=== PATIENT | male | born 1945 | race Two or more races ===

== ENCOUNTER 2022-05-12 14:50 | Inpatient (IN) | payer OTHER ==
[~2022-05-12] VITALS: Ht 172.7 cm; Wt 75.0 kg
[2022-05-12 15:43] LABS: Basophils # (auto) 0 10 ^3/uL (0-0.2); Basophils % (auto) 0.6 % (0.0-2.0); Eosinophils # (auto) 0.2 10 ^3/uL (0-0.8); Hematocrit 45.6 % (41.0-53.0); Lymphocytes # (auto) 2.3 10 ^3/uL (0.4-5.4); Lymphocytes % (auto) 29.9 % (10.0-50.0); Mean Corpuscular Hemoglobin 30.8 pg (28.0-32.0); Mean Corpuscular Hgb Conc. 32.9 g/dL (32.0-36.0); Mean Corpuscular Volume 93.6 fL (80.0-100.0); Monocytes # (auto) 0.6 10 ^3/uL (0-1.3); Monocytes % (auto) 7.6 % (0.0-12.0); Neutrophils # (auto) 4.5 10 ^3/uL (1.6-8.6); Neutrophils % (auto) 58.9 % (37.0-80.0); Red Blood Cells 4.87 10^6/uL (4.5-5.90); Red Cell Distribution Width 13.4 % (11.8-14.3); White Blood Cell 7.7 10^3/uL (4.4-10.8)
[2022-05-12 15:59] LABS: BUN/Creatinine Ratio 18.1; Calcium 8.7 mg/dL (8.5-10.1); Potassium 4.4 mmol/L (3.5-5.1)
[2022-05-12 16:02] LABS: Bilirubin, Total 0.3 mg/dL (0.2-1.0); Total Protein 7.3 g/dL (6.4-8.2)
[2022-05-12 16:58] LABS: INR 0.97 (0.9-1.15)
[2022-05-12 18:21] LABS: Urine Bacteria NONE SEEN /hpf (None Seen); Urine Blood TRACE /uL (Negative); Urine Mucus FEW (None Seen); Urine Specific Gravity 1.012 (1.001-1.035); Urine WBC 10 /hpf (0 - 3); Urine WBC Clumps PRESENT /hpf (None Seen)
[2022-05-12] MEDS ORDERED: ASPirin 81 mg TAB PO ONE (18:30)
[2022-05-12 19:29] LABS: Cholesterol 147 mg/dL (< 200)
[2022-05-12 19:31] LABS: HDL Cholesterol 38 mg/dL (40-59); LDL Cholesterol 93 mg/dL (< 100); Triglycerides 161 mg/dL (< 150)
[2022-05-12] MEDS ORDERED: ACETAMINOPHEN 325 MG TAB PO PRN (21:00)
[2022-05-12] MEDS ORDERED: NITROGLYCERIN 0.4 MG SL TAB SL PRN (21:00)
[2022-05-12] MEDS ORDERED: DEXTROSE (50%) 50ML SYRG IV PRN (21:00)
[2022-05-12] MEDS ORDERED: ONDANSETRON HCL 4 MG/2 ML VIAL IV PRN (21:00)
[2022-05-12] MEDS ORDERED: MORPHINE SULFATE INJ 2 MG/ml SYRG IV PRN (21:00)
[2022-05-12] MEDS: TAMSULOSIN HYDROCHLORIDE 0.4 MG CAP PO SCH (21:15)
[2022-05-12] MEDS: ACCU-CHEK COMFORT CURVE STRIP VI SCH (22:00)
[2022-05-12] MEDS: InsuLIN REG 1unit/0.01ml Soln (100units/ml) SC SCH (22:00)
[2022-05-12] MEDS: METOPROLOL TARTRATE 25 MG TAB PO SCH (22:31)
[2022-05-13] VITALS (8 sets, daily range): BP systolic 132–171; BP diastolic 63–86
[2022-05-13] MEDS ORDERED: METO25TA5 PO (01:09)
[2022-05-13] MEDS ORDERED: GLIM2TAB33 PO (01:09)
[2022-05-13] MEDS ORDERED: ASPI1TAB20 PO (01:09)
[2022-05-13] MEDS ORDERED: ATOR-47 PO (01:09)
[2022-05-13] MEDS ORDERED: TAM04C PO (01:09)
[2022-05-13] MEDS ORDERED: CHOL20007 PO (01:09)
[2022-05-13] MEDS ORDERED: AML5T PO (01:09)
[2022-05-13] MEDS ORDERED: BENA40TA8 PO (01:09)
[2022-05-13 05:39] LABS: Basophils # (auto) 0 10 ^3/uL (0-0.2); Basophils % (auto) 0.3 % (0.0-2.0); Eosinophils # (auto) 0.3 10 ^3/uL (0-0.8); Eosinophils % (auto) 4.3 % (0.0-7.0); Hematocrit 43.7 % (41.0-53.0); Hemoglobin 14.9 g/dL (13.5-17.5); Lymphocytes # (auto) 1.8 10 ^3/uL (0.4-5.4); Lymphocytes % (auto) 23.9 % (10.0-50.0); Mean Corpuscular Hemoglobin 31.5 pg (28.0-32.0); Mean Corpuscular Hgb Conc. 34.1 g/dL (32.0-36.0); Mean Corpuscular Volume 92.3 fL (80.0-100.0); Monocytes # (auto) 0.7 10 ^3/uL (0-1.3); Monocytes % (auto) 8.7 % (0.0-12.0); Neutrophils # (auto) 4.8 10 ^3/uL (1.6-8.6); Neutrophils % (auto) 62.8 % (37.0-80.0); Nucleated Red Blood Cells % 0.1 %; Red Blood Cells 4.73 10^6/uL (4.5-5.90); Red Cell Distribution Width 13.4 % (11.8-14.3); White Blood Cell 7.6 10^3/uL (4.4-10.8)
[2022-05-13 05:55] LABS: Albumin 3.5 g/dL (3.4-5.0)
[2022-05-13 05:59] LABS: BUN/Creatinine Ratio 17.5; Bilirubin, Total 0.5 mg/dL (0.2-1.0); Calcium 9.2 mg/dL (8.5-10.1); Total Protein 6.5 g/dL (6.4-8.2)
[2022-05-13] MEDS: InsuLIN REG 1unit/0.01ml Soln (100units/ml) SC SCH ×4 (06:35→21:17)
[2022-05-13] MEDS: ACCU-CHEK COMFORT CURVE STRIP VI SCH ×4 (06:37→21:16)
[2022-05-13] MEDS: ATORVASTATIN 20 MG TAB PO SCH (09:06)
[2022-05-13] MEDS: ASPirin 81 mg TAB PO SCH (09:06)
[2022-05-13] MEDS: amLODIPine BESYLATE 5 MG TAB PO SCH (09:07)
[2022-05-13] MEDS: METOPROLOL TARTRATE 25 MG TAB PO SCH ×2 (09:07→21:54)
[2022-05-13] MEDS: ENOXAPARIN SOD 40 MG/0.4 ML SYRINGE SC SCH (09:07)
[2022-05-13] MEDS ORDERED: PANTOPRAZOLE 40 MG TAB PO SCH (10:00)
[2022-05-13] MEDS ORDERED: CLOPIDOGREL BISULFATE 75 MG TAB PO ONE (14:45)
[2022-05-13] MEDS ORDERED: HYDR-4902 PO (14:51)
[2022-05-13] MEDS ORDERED: CHOL20TA PO (14:51)
[2022-05-13] MEDS ORDERED: HYDR12.56 PO (14:51)
[2022-05-13] MEDS ORDERED: INSUINJ2 SC (14:51)
[2022-05-13] MEDS ORDERED: cefTRIAXone 1GM/50ML D5W 50 ML IV ONE (15:00)
[2022-05-13] MEDS ORDERED: IOHEXOL 350 MG/ML 100ML IJ ONE (15:59)
[2022-05-13] MEDS ORDERED: hydrALAZINE HCL 20 MG/ML VL IV PRN (16:00)
[2022-05-13] MEDS ORDERED: TEMAZEPAM 15 MG CAP PO PRN (16:15)
[2022-05-13] MEDS: TAMSULOSIN HYDROCHLORIDE 0.4 MG CAP PO SCH (17:01)
[2022-05-14 05:00] VITALS: BP 146/77
[2022-05-14] MEDS: InsuLIN REG 1unit/0.01ml Soln (100units/ml) SC SCH ×2 (05:56→11:47)
[2022-05-14 08:33] VITALS: BP 123/70
[2022-05-14] MEDS ORDERED: cefTRIAXone 1GM/50ML D5W 50 ML IV SCH (09:00)
[2022-05-14] MEDS: ACCU-CHEK COMFORT CURVE STRIP VI SCH ×2 (09:07→11:47)
[2022-05-14] MEDS: ATORVASTATIN 20 MG TAB PO SCH (09:08)
[2022-05-14] MEDS: ASPirin 81 mg TAB PO SCH (09:08)
[2022-05-14] MEDS: METOPROLOL TARTRATE 25 MG TAB PO SCH (09:08)
[2022-05-14] MEDS: amLODIPine BESYLATE 5 MG TAB PO SCH (09:09)
[2022-05-14] MEDS: ENOXAPARIN SOD 40 MG/0.4 ML SYRINGE SC SCH (09:09)
[2022-05-14] MEDS ORDERED: BENAZEPRIL HCL 10 MG TAB PO SCH (10:00)
[2022-05-14] MEDS ORDERED: CLOPIDOGREL BISULFATE 75 MG TAB PO SCH (10:00)
[2022-05-14 13:15] VITALS: BP 143/66
[2022-05-14] MEDS ORDERED: CLOP75TA70 PO (13:51)
[2022-05-14] MEDS ORDERED: ROCURONIUM 10MG/ML 10ML VIAL IV ONE (14:52)
[2022-05-14] MEDS ORDERED: fentaNYL CITRATE 100 MCG/2 ML VL ONE (14:52)
[2022-05-14] MEDS ORDERED: ONDANSETRON HCL 4 MG/2 ML VIAL ONE (14:53)
[2022-05-14] MEDS ORDERED: LIDOCAINE 2% (LOCAL ANESTH.) PF 5ml SDV ONE (14:53)
[2022-05-14] MEDS ORDERED: METOCLOPRAMIDE HCL 5MG/ml INJ 2ml VIAL ONE (14:53)
[2022-05-14] MEDS ORDERED: DexAMETHasone SOD PHOS 10MG/1ML VIAL INJ ONE (14:53)
[2022-05-14] MEDS ORDERED: GLYCOPYRROLATE 0.2 MG/ML 1ML VIAL ONE (16:43)
[2022-05-14] MEDS ORDERED: NEOSTIGMINE 1 MG/ML INJ (10mg/10ML VIAL) ONE (16:43)
[2022-05-14 17:00] VITALS: BP 130/64
== END 2022-05-14 18:04 | disposition home or self-care (01) | DRG 65 ==
LOC: ER 14:50 → TELE 20:55 → TELE-WESTW 05-13 00:35
PROVIDERS: ADMIT Nurse Practitioner; ATTEND Internal Medicine Geriatric Medicine
DX: I63.9 Cerebral infarction, unspecified (principal); G81.91 Hemiplegia, unspecified affecting right dominant side; N39.0 Urinary tract infection, site not specified; E11.9 Type 2 diabetes mellitus without complications; E78.5 Hyperlipidemia, unspecified; I10 Essential (primary) hypertension; I25.10 Atherosclerotic heart disease of native coronary artery without angina pectoris; I65.22 Occlusion and stenosis of left carotid artery; M10.9 Gout, unspecified; Z20.822 Contact with and (suspected) exposure to COVID-19; Z79.82 Long term (current) use of aspirin; Z79.899 Other long term (current) drug therapy; Z95.1 Presence of aortocoronary bypass graft; Z79.4 Long term (current) use of insulin
CPT/HCPCS: 36415; 70450; 70496; 70498; 70551; 73630; 80053; 80061; 81001; 82962; 84484; 85025; 85610; 85730; 93005; 93306; 93886; 97116; 97163; 97530; 99291; G0378; J0696; J1100; J1815; J2001; J2405

== ENCOUNTER 2025-01-13 15:33 | Inpatient (IN) | payer OTHER, MEDICAID ==
[~2025-01-13] VITALS: Ht 172.7 cm; Wt 64.9 kg
[~2025-01-13 15:33] MED LIST: AML5T PO; ASPI1TAB20 PO; ATOR-47 PO; BENA40TA71 PO; CHOL20007 PO; CHOL20TA PO; CLOP75TA70 PO; GLIM2TAB33 PO; HYDR-4902 PO; HYDR12.59 PO; INSUINJ2 SC; METO25TA5 PO; TAMS-35 PO
--- NOTE | 2025-01-13 16:52 | ED.PDOC ---
History of Present Illness HPI Comments 79-year-old male brought in by daughter presents with a chief complaint of generalized weakness and poor appetite x 1 week. Daughter reports that patient has been becoming increasingly weaker and unable to ambulate anymore, even with a walker or assistance. Patient is nonverbal at this time due to a stroke in the past. Daughter mentions that she attempts to feed patient, but he chooses not to eat anything. Daughter also mentions that patient has been coughing up phlegm. PMHx: CVA, DM, CAD, HTN, HLD, Gout PSHx: CABG SHx: Daughter denies HPI: Poor Historian. REVIEW OF SYSTEMS: CONSTITUTIONAL: Denies acute: fever, diaphoresis, chills, HEAD: Denies acute: headache, photophobia Eyes: Denies acute: Double vision, vision loss, eye pain, eye discharge. EARS: Denies acute: tinnitus, hearing loss, ear discharge, ear pain, THROAT: Denies acute: sore throat, swelling, difficulty swallowing , pain with swallowing, change in voice. NECK: Denies acute: neck pain, neck swelling, stiff neck. HEART: Denies acute : chest pain, palpitations, LUNGS: Denies acute: SOB, wheezing, cough, hemoptysis ABDOMEN: Denies acute: abdominal pain, Nausea, Vomiting, diarrhea, melena , hematemesis, hematochezia SKIN: Denies acute: rash, redness, lesions, itchiness. EXTREMITIES: Denies acute: calf pain, numbness, tingling, weakness, denies pain in extremity. Denies acute: Low back pain. Neuro: Denies acute: focal neurological deficit, motor or sensory focal neurological deficit, tremors, seizure like activity, confusion, dizziness, change in mental status, loss of bowel or bladder function, cauda equina like symptoms. : Denies acute: dysuria, hematuria, flank pain, increase in urinary frequency. PSYCH: Denies acute: hallucination, suicidal ideation, homicidal ideation. PHYSICAL EXAM: General: no acute distress, awake and alert. Head: normocephalic, atraumatic. Neck: supple, trachea is midline, no swelling. Eyes:, no erythema, no purulent discharge, no proptosis, no icterus. Heart: regular rate, regular rhythm, no significant murmur appreciated. Lungs: no apparent respiratory distress, No wheezing, no rhonchi, no crackles. No stridors Clear to auscultation bilaterally. Abdomen: non tender to palpation, non distended, soft, no guarding, no rebound, + bowel sounds. Neuro: Awake, Alert, oriented to name, self, situation, follows commands. Appears very weak. Skin: no petechia, no purpura, no cyanosis, non-pale, not jaundice. Lower extremities: --no - Pitting edema no deformity, no focal swelling, no calf TTP. Makes eye contact. Face: no apparent facial droop. ED COURSE: Chief Complaint: General Weakness Time Seen by MD: 16:45 Primary Care Provider: VANNESSA Reviewed Notes: Nurses Notes, Medications, Allergies Allergies: Coded Allergies: NO KNOWN ALLERGIES (Unverified , 05/12/22) Home Meds Active Scripts Clopidogrel Bisulfate (CLOPIDOGREL) 75 Mg Tab, 75 MG PO DAILY for 30 Days, #30 TAB 5 Refills Prov:PABLITO GUERRA MD 05/14/22 Reported Medications Insulin NPH (Human) (Isophane) (Humulin N) 100 Unit/Ml Inj, 25 UNIT SC BIDBRS, INJ 05/13/22 Hydrochlorothiazide (Hydrochlorothiazide) 12.5 Mg Cap, 12.5 MG PO DAILY for 30 Days, MG 05/13/22 Hydrocodone-Acetaminophen (Hydrocodone Bitartrate/AC 5-325 mg) 1 Tab Tab, 1 TAB PO Q8HP PRN for PAIN SCALE 1 THRU 6, TAB 05/13/22 Cholecalciferol (Vitamin D3) 20 Mcg Tab, 25 MCG PO DAILY, TAB 05/13/22 Cholecalciferol (VITAMIN D3) 2,000 Unit Tab, 1000 UNIT PO DAILY, TAB 05/13/22 Metoprolol Tartrate (Metoprolol Tartrate) 25 Mg Tab, 25 MG PO BID for 30 Days, MG 05/13/22 Tamsulosin Hcl (Flomax) 0.4 Mg Cap, 1 CAP PO DAILY, #30 CAP 11 Refills 05/13/22 Benazepril Hcl (Benazepril Hcl) 40 Mg Tab, 40 MG PO DAILY for 30 Days, MG 05/13/22 Amlodipine Besylate (NORVASC TABLET) 5 Mg Tb, 2 TAB PO DAILY, #30 TAB 5 Refills 05/13/22 Glimepiride (Glimepiride) 2 Mg Tab, 2 MG PO BID for 30 Days, MG 05/13/22 Aspirin (Aspir-81) 81 Mg Tab, 1 TAB PO DAILY, #30 TAB 5 Refills 05/13/22 Atorvastatin Calcium (ATORVASTATIN CALCIUM) 80 Mg Tab, 1 TAB PO DAILY, #30 TAB 5 Refills 05/13/22 Information Source: Relative (Child) Mode of Arrival: Wheelchair Past Medical History PAST MEDICAL HISTORY: CAD, CVA, DM, Gout, High Lipids, HTN Surgical History: CABG Family History Family History: Reviewed,noncontributory to illness Social History Smoker: Non-Smoker Alcohol: Denies ETOH Use Drugs: Denies Drug Use Lives In: Home Was a procedure done? Was a procedure done?: No Differential Dx Considerations may include: Includes but not limited to thyroid disease, encephalopathy, electrolyte abnormality, sepsis, infection, intracranial pathology, drug adverse effects, arrhythmia, kidney insufficiency, ACS, CVA, malignancy, anemia X-Ray, Labs, Meds, VS Vital Signs Date Time Temp Pulse Resp B/P (MAP) Pulse Ox O2 Delivery O2 Flow Rate FiO2 01/13/25 20:26 67 14 124/67 (86) 98 01/13/25 18:24 Room Air* 0 21 01/13/25 18:23 96.5 69 16 120/70 (87) 95 96.5 01/13/25 17:32 98.2 65 22 113/69 (84) 98 98.2 01/13/25 16:49 66 Lab Test 01/13/25 22:00 01/13/25 21:04 01/13/25 19:05 01/13/25 17:24 Range/Units Urine Color Pending Urine Clarity Pending Urine pH Pending Urine Specific Graham Pending Urine Protein Pending Urine Ketones Pending Urine Blood Pending Urine Nitrite Pending Urine Bilirubin Pending Urine Urobilinogen Pending Urine Leukocyte Esterase Pending Urine RBC Pending Urine Microscopic WBC Pending Urine Squamous Epithelial Cells Pending Urine Bacteria Pending Urine Glucose Pending Troponin I High Sensitivity 14 13 15 </=54 ng/L White Blood Count 7.8 4.4-10.8 10^3/uL Red Blood Count 4.81 4.5-5.90 10^6/uL Hemoglobin 15.9 13.5-17.5 g/dL Hematocrit 47.2 41.0-53.0 % Mean Corpuscular Volume 98.1 80.0-100.0 fL Mean Corpuscular Hemoglobin 33.1 H 28.0-32.0 pg Mean Corpuscular Hemoglobin Concent 33.7 32.0-36.0 g/dL Red Cell Distribution Width 15.0 H 11.8-14.3 % Platelet Count 258 140-450 10^3/uL Mean Platelet Volume 7.1 6.9-10.8 fL Neutrophils (%) (Auto) 67.4 37.0-80.0 % Lymphocytes (%) (Auto) 25.2 10.0-50.0 % Monocytes (%) (Auto) 6.6 0.0-12.0 % Eosinophils (%) (Auto) 0.4 0.0-7.0 % Basophils (%) (Auto) 0.4 0.0-2.0 % Neutrophils # (Auto) 5.3 1.6-8.6 10 ^3/uL Lymphocytes # (Auto) 2.0 0.4-5.4 10 ^3/uL Monocytes # (Auto) 0.5 0-1.3 10 ^3/uL Eosinophils # (Auto) 0 0-0.8 10 ^3/uL Basophils # (Auto) 0 0-0.2 10 ^3/uL Nucleated Red Blood Cells 0.1 % Sodium Level 138 136-145 mmol/L Potassium Level 3.6 3.5-5.1 mmol/L Chloride Level 102 98-107 mmol/L Carbon Dioxide Level 23 20-31 mmol/L Anion Gap 13 5-15 Blood Urea Nitrogen 26 H 9-23 mg/dL Creatinine 1.25 0.700-1.30 mg/dL Glomerular Filtration Rate Calc 58 >90 mL/min BUN/Creatinine Ratio 20.8 H 10.0-20.0 Serum Glucose 112 H 74-106 mg/dL Lactic Acid Level 1.9 0.4-2.0 mmol/L Calcium Level 9.3 8.7-10.4 mg/dL Magnesium Level 2.1 1.6-2.6 mg/dL Total Bilirubin 0.7 0.2-1.0 mg/dL Aspartate Amino Transferase (AST) 20 13-40 U/L Alanine Aminotransferase (ALT) 15 7-40 U/L Alkaline Phosphatase 51 46-116 U/L B-Type Natriuretic Peptide 34.78 0-100 pg/mL Total Protein 6.3 5.7-8.2 g/dL Albumin 4.2 3.2-4.8 g/dL PATIENT: BEATRIZ CARPENTERCCT: [id number]: [id number] : 1945 LOC: ER ROOM / BED: / AGE / SEX: 79 / M ADM STATUS: REG ER SERVICE 42 ORDERING PHYSICIAN: BABAR WILSON DO PROCEDURE(s): CXRP - CHEST PORTABLE REASON: gen cabrera ORDER NUMBER(s): [id number], ACCESSION NUMBER(s): [id number] CHEST RADIOGRAPH Indication: gen weak Technique: Single frontal view of the chest was obtained COMPARISON: None FINDINGS: Lines and Tubes: None Lungs: Clear Pleura: No effusion. No pneumothorax. Cardiomediastinal contours: Unremarkable Bones: Unremarkable IMPRESSION: 1. No acute disease. ATED BY: RASHIDA ORO MD DICTATED DATE/TIME: 01/13/251725 SIGNED BY: RASHIDA ORO MD SIGNED DATE/TIME: 01/13/251725 PATIENT: BRITTANY CARPENTER ACCT: [id number] UNIT: [id number] : 1945 LOC: ER ROOM / BED: / AGE / SEX: 79 / M ADM STATUS: REG ER SERVICE 42 ORDERING PHYSICIAN: BABAR WILSON DO PROCEDURE(s): HWOCT - HEAD WITHOUT CONTRAST REASON: gen cabrera ORDER NUMBER(s): [id number], ACCESSION NUMBER(s): [id number] EXAM: CT HEAD WITHOUT CONTRAST INDICATION: gen cabrera TECHNIQUE: CT of the head without intravenous contrast. Radiation Dose Information: CT Dose: CTDI volume is 53.76 mGy. Dose-length product is 971.18 mGy*cm The dose indicators for CT are the volume Computed Tomography (CT) Dose Index (CTDIvol) and the Dose Length Product (DLP), and are measured in units of mGy and mGy-cm, respectively. These indicators are not patient dose, but values generated from the CT scanner acquisition factors. The report includes radiation exposure data for exposures received during this examination. COMPARISON: HEAD WITHOUT CONTRAST on DOS: 05/12/22 FINDINGS: There is no evidence of acute intracranial hemorrhage, extra-axial collection, mass effect, midline shift, herniation or hydrocephalus. The ventricles, sulci and cisterns are age appropriate. The alexander-white differentiation is intact. Patchy periventricular and subcortical white matter hypoattenuation is nonspecific but may be related to small vessel ischemic disease. The visualized paranasal sinuses and mastoid air cells are clear. The surrounding soft tissues and osseous structures are unremarkable. IMPRESSION: 1. NO ACUTE INTRACRANIAL HEMORRHAGE 2. NO TERRITORIAL ISCHEMIA. HS:Y ATED BY: RASHIDA COELLO Jr., DO DICTATED DATE/TIME: 01/13/251729 SIGNED BY: RASHIDA COELLO Jr., SIGNED DATE/TIME: 01/13/251729 PATIENT: BRITTANY CARPENTER ACCT: [id number] UNIT: [id number] : 1945 LOC: ER ROOM / BED: / AGE / SEX: 79 / M ADM STATUS: REG ER SERVICE 1643 ORDERING PHYSICIAN: BABAR WILSON DO PROCEDURE(s): ABPL - CT AB PEL WO CON-NO ORAL OR IV REASON: gen weak ORDER NUMBER(s): [id number], ACCESSION NUMBER(s): [id number] Procedure: CT CT AB PEL WO CON-NO ORAL OR IV 01/13/2025 04:53 PM Indication: gen weak Comparison Study: None Technique: Axial images were obtained and reformatted in coronal and sagittal planes. All CT scans at this medical facility are performed using dose modulation techniques as appropriate to a performed exam including the following: Automated exposure control was utilized; adjustment of the MA and/or KV according to patient size; and use of iterative reconstruction technique. CT Dose: CTDI volume is 8.7 mGy. Dose-length product is 438 mGy*cm FINDINGS: Lower Chest: Base of the lungs are clear. Coronary artery calcification noted. The heart is normal in size. Hepatobiliary: Moderately distended gallbladder without gallbladder wall thickening, pericholecystic edema or calcified gallstone. Several subcentimeter calcified granulomas are seen in the liver. No intrahepatic or extrahepatic ductal dilatation. Spleen: Unremarkable. Pancreas: Unremarkable. Adrenal Glands: Unremarkable. tract: The kidneys are normal in size bilaterally without hydronephrosis or nephrolithiasis. The urinary bladder is unremarkable. GI tract: The stomach is grossly normal in appearance. No evidence of small bowel obstruction. The large bowel is unremarkable. The appendix is normal. Lymphatics: No mesenteric, retroperitoneal or periportal lymphadenopathy. Vasculature: The abdominal aorta is normal in caliber. Diffuse calcified plaque formation is noted. Pelvic Organs: Unremarkable Bones/soft tissues: No acute abnormality. Other: None. IMPRESSION: 1. No CT evidence of acute abnormality in the abdomen or pelvis. ATED BY: PIPPA COTO MD DICTATED DATE/TIME: 01/13/251825 SIGNED BY: PIPPA COTO MD SIGNED DATE/TIME: 01/13/251825 Time of 1ST Reevaluation: 17:15 Reevaluation 1ST: Unchanged Patient Education/Counseling: Diagnosis, Treatment Family Education/Counseling: Diagnosis, Treatment Comments Patient presented with the above HPI.-generalized weakness-----workup was initiated. patient was found with the above mentioned diagnosis. the following medications were ordered: please refer to order lists of meds and tests obtained by myself Dr. Wilson. Patient ED course and VS have been stabilized. Patient has been reassessed in the ED and remained in a stable condition. Pertinent incidental findings were discussed with the patient and/or family. Patient/family voices understanding and is agreeable with plan. Patient has been observed in the ED adequate length of time to insure improvement/stability. Escalation of care considered: Consideration of escalation to observation or admission Patient was ADMITTED to the medicine team for further evaluation and treatment of their presentation. Per at bedside, patient has not been eating and drinking in the last 12 days. He has not been able to ambulate lately due to weakness and is requiring more care at home. also notes that his speech has deteriorated over the course of the last 1-2 weeks. She said he had speech problems from a previous stroke but has progressively gotten worse in the last two weeks. All the reports of any imaging studies that were ordered by myself were reviewed by myself. Departure 1 Departure Time of Disposition: 19:20 Impression: Primary Impression: Failure to thrive Additional Impression: Generalized weakness Disposition: ADMITTED INPATIENT Admit to: [facility] Condition: Guarded Discharged With: Self Critical Care Note Critical Care Time?: No I personally scribed for BABAR WILSON DO ([email or web address]) on 01/13/25 at 16:52. Electronically submitted by Deejay Cerda ([email or web address]). I personally scribed for BABAR WILSON J DO ([email or web address]) on 01/13/25 at 16:54. Electronically submitted by Deejay Cerda ([email or web address]). I personally scribed for BABAR WILSON J DO ([email or web address]) on 01/13/25 at 17:50. Electronically submitted by Deejay Cerda ([email or web address]). I personally scribed for BABAR WILSON J DO ([email or web address]) on 01/13/25 at 17:54. Electronically submitted by Deejay Cerda ([email or web address]). I personally scribed for BABAR WILSON J DO ([email or web address]) on 01/13/25 at 19:18. Electronically submitted by Deejay Cerda ([email or web address]). BABAR WILSON DO Jan 13, 2025 16:52
--- NOTE | 2025-01-13 17:28 | DVH ---
CHEST RADIOGRAPH Indication: gen weak Technique: Single frontal view of the chest was obtained COMPARISON: None FINDINGS: Lines and Tubes: None Lungs: Clear Pleura: No effusion. No pneumothorax. Cardiomediastinal contours: Unremarkable Bones: Unremarkable IMPRESSION: 1. No acute disease.
[2025-01-13 17:33] LABS: Basophils # (auto) 0 10 ^3/uL (0-0.2); Basophils % (auto) 0.4 % (0.0-2.0); Eosinophils # (auto) 0 10 ^3/uL (0-0.8); Eosinophils % (auto) 0.4 % (0.0-7.0); Hematocrit 47.2 % (41.0-53.0); Hemoglobin 15.9 g/dL (13.5-17.5); Lymphocytes % (auto) 25.2 % (10.0-50.0); Mean Corpuscular Hemoglobin 33.1 pg (28.0-32.0); Mean Corpuscular Hgb Conc. 33.7 g/dL (32.0-36.0); Mean Corpuscular Volume 98.1 fL (80.0-100.0); Monocytes # (auto) 0.5 10 ^3/uL (0-1.3); Monocytes % (auto) 6.6 % (0.0-12.0); Neutrophils # (auto) 5.3 10 ^3/uL (1.6-8.6); Neutrophils % (auto) 67.4 % (37.0-80.0); Nucleated Red Blood Cells % 0.1 %; Platelet Count (auto) 258 10^3/uL (140-450); Red Blood Cells 4.81 10^6/uL (4.5-5.90); White Blood Cell 7.8 10^3/uL (4.4-10.8)
--- NOTE | 2025-01-13 17:33 | DVH ---
EXAM: CT HEAD WITHOUT CONTRAST INDICATION: gen weak TECHNIQUE: CT of the head without intravenous contrast. Radiation Dose Information: CT Dose: CTDI volume is 53.76 mGy. Dose-length product is 971.18 mGy*cm The dose indicators for CT are the volume Computed Tomography (CT) Dose Index (CTDIvol) and the Dose Length Product (DLP), and are measured in units of mGy and mGy-cm, respectively. These indicators are not patient dose, but values generated from the CT scanner acquisition factors. The report includes radiation exposure data for exposures received during this examination. COMPARISON: HEAD WITHOUT CONTRAST on DOS: 05/12/22 FINDINGS: There is no evidence of acute intracranial hemorrhage, extra-axial collection, mass effect, midline s hift, herniation or hydrocephalus. The ventricles, sulci and cisterns are age appropriate. The alexander-white differentiation is intact. Patchy periventricular and subcortical white matter hypoattenuation is nonspecific but may be related to small vessel ischemic disease. The visualized paranasal sinuses and mastoid air cells are clear. The surrounding soft tissues and osseous structures are unremarkable. IMPRESSION: 1. NO ACUTE INTRACRANIAL HEMORRHAGE 2. NO TERRITORIAL ISCHEMIA. HS:Y
[2025-01-13 17:52] LABS: Alanine Aminotransferase 15 U/L (7-40); Albumin 4.2 g/dL (3.2-4.8); Alkaline Phosphatase 51 U/L (46-116); Anion Gap 13 (5-15); Aspartate Aminotransferase 20 U/L (13-40); BUN/Creatinine Ratio 20.8 (10.0-20.0); Bilirubin, Total 0.7 mg/dL (0.2-1.0); Calcium 9.3 mg/dL (8.7-10.4); Carbon Dioxide 23 mmol/L (20-31); Chloride 102 mmol/L (98-107); Magnesium 2.1 mg/dL (1.6-2.6); Potassium 3.6 mmol/L (3.5-5.1); Sodium 138 mmol/L (136-145); Total Protein 6.3 g/dL (5.7-8.2)
[2025-01-13 17:53] LABS: Blood Urea Nitrogen 26 mg/dL (9-23); Glucose 112 mg/dL (74-106)
--- NOTE | 2025-01-13 18:29 | DVH ---
Procedure: CT CT AB PEL WO CON-NO ORAL OR IV 01/13/2025 04:53 PM Indication: gen weak Comparison Study: None Technique: Axial images were obtained and reformatted in coronal and sagittal planes. All CT scans at this medical facility are performed using dose modulation techniques as appropriate to a performed e xam including the following: Automated exposure control was utilized; adjustment of the MA and/or KV according to patient size; and use of iterative reconstruction technique. CT Dose: CTDI volume is 8.7 mGy. Dose-length product is 438 mGy*cm FINDINGS: Lower Chest: Base of the lungs are clear. Coronary artery calcification noted. The heart is normal in size. Hepatobiliary: Moderately distended gallbladder without gallbladder wall thickening, pericholecystic edema or calcified gallstone. Several subcentimeter calcified granulomas are seen in the liver. No intrahepatic or extrahepatic ductal dilatation. Spleen: Unremarkable. Pancreas: Unremarkable. Adrenal Glands: Unremarkable. tract: The kidneys are normal in size bilaterally without hydronephrosis or nephrolithiasis. The u rinary bladder is unremarkable. GI tract: The stomach is grossly normal in appearance. No evidence of small bowel obstruction. The la rge bowel is unremarkable. The appendix is normal. Lymphatics: No mesenteric, retroperitoneal or periportal lymphadenopathy. Vasculature: The abdominal aorta is normal in caliber. Diffuse calcified plaque formation is noted. Pelvic Organs: Unremarkable Bones/soft tissues: No acute abnormality. Other: None. IMPRESSION: 1. No CT evidence of acute abnormality in the abdomen or pelvis.
[2025-01-13] MEDS ORDERED: ONDANSETRON HCL 4 MG/2 ML VIAL IV PRN (22:00)
[2025-01-13] MEDS: METOPROLOL TARTRATE 25 MG TAB PO SCH (22:00)
[2025-01-13] MEDS: SODIUM CHLORIDE 0.9% 1,000 ML IV SCH (22:00)
[2025-01-13] MEDS: ATORVASTATIN 20 MG TAB PO SCH (22:00)
[2025-01-13] MEDS: ACCU-CHEK COMFORT CURVE STRIP VI SCH (22:00)
[2025-01-13] MEDS: InsuLIN REG 1unit/0.01ml Soln (100units/ml) SC SCH (22:00)
[2025-01-13] MEDS ORDERED: DEXTROSE (50%) 50ML SYRG IV PRN (22:00)
[2025-01-13] MEDS ORDERED: hydrALAZINE HCL 20 MG/ML VL IV PRN (22:00)
[2025-01-13 22:35] LABS: Urine Bacteria MOD /hpf (None Seen); Urine Blood 1+ /uL (Negative); Urine Clarity Turbid (Clear); Urine Color Yellow (Yellow); Urine Mucus FEW (None Seen); Urine Protein, UAD TRACE (Negative); Urine Specific Gravity 1.013 (1.001-1.035); Urine Squamous Epithelial Cell None Seen /hpf (<5); Urine Urobilinogen Normal (Negative); Urine WBC 493 /HPF (0-3); Urine WBC Clumps PRESENT /hpf (None Seen)
--- NOTE | 2025-01-13 23:18 | DVHHP2 ---
History of Present Illness Reason for Visit: Generalized weakness History of Present Illness The patient is a 79-year-old male with past medical history of CVA, DM, Coronary artery disease, hypertension, GERD, and hyperlipidemia who presented to [facility] ED with complaint of generalized weakness. Patient's daughter reports symptoms progressively get worse with loss of appetite, increasingly weaker and unable to ambulate, has been coughing up phlegm, getting worse that prompted this visit. Patient was seen and evaluated in the ED, laboratory data shows WBC 7.8, platelets 258, sodium 138, potassium 3.6, BUN 26, creatinine 1.25, GFR 58, glucose 112, troponin 15. Head CT showed no acute intracranial hemorrhage. Please see medication orders section in the computer. On my assessment, patient denied chest pain, no headache, no dizziness, no diaphoresis, no shortness of breath, no nausea, no vomiting, no fever, no chills. Patient was admitted for further evaluation and medical management. Past Medical History CAD, CVA, DM, Gout, High Lipids, HTN Past Surgical History CABG Family History Reviewed, noncontributory to the management of this case. Past Social History The patient lives at home, denies smoking, alcohol or illicit drugs abuse. Review of Systems Constitutional: Yes: Weakness; No: Fever, Chills, Sweats, Malaise, Other Eyes: No: Pain, Vision change, Conjunctivae inflammation, Eyelid inflammation, Other, Redness ENT: No: Ear pain, Ear discharge, Nose pain, Nose discharge, Nose congestion, Mouth pain, Mouth swelling, Throat pain, Throat swelling, Other Respiratory: Cough (With phlegm.); No: Dry, Shortness of breath, SOB with excertion, Wheezing, Hemoptysis, Pleuritic Pain, Sputum, Wheezing, Other Cardiovascular: No: Chest Pain, Palpitations, Orthopnea, Paroxysmal Noc. Dyspnea, Edema, Lt Headedness, Other Gastrointestinal: No: Nausea, Vomiting, Abdominal Pain, Diarrhea, Constipation, Melena, Hematochezia, Other Genitourinary: No Dysuria, No Frequency, No Incontinence, No Hematuria, No Retention, No Other Musculoskeletal: No: other, neck pain, shoulder pain, arm pain, back pain, hand pain, leg pain, foot pain Skin: No: Rash, Lesions, Jaundice, Bruising, Other Neurological: No: Weakness, Numbness, Incoordination, Change in speech, Confusion, Seizures, Other Allergies: Coded Allergies: NO KNOWN ALLERGIES (Unverified , 05/12/22) Medications Current Medications Medications Dose Ordered Sig/Dorothy Route Start Time Stop Time Status Last Admin Dose Admin Aspirin 81 mg DAILY PO 01/14/25 10:00 Clopidogrel Bisulfate 75 mg DAILY PO 01/14/25 10:00 Atorvastatin Calcium 40 mg HS PO 01/13/25 22:00 Tamsulosin HCl 0.4 mg QPM PO 01/14/25 18:00 Metoprolol Tartrate 12.5 mg BID PO 01/13/25 22:00 Hydralazine HCl 10 mg Q6HP PRN IV 01/13/25 22:00 Diagnostic Test (Pha) 1 strip ACHS 01/13/25 22:00 01/13/25 22:00 1 STRIP Insulin Human Regular ACHS SC 01/13/25 22:00 01/13/25 22:00 2 UNITS Dextrose 50 ml UD PRN IV 01/13/25 22:00 Sodium Chloride 1,000 ml @ 60 mls/hr [id number] IV 01/13/25 22:00 01/13/25 22:00 60 MLS/HR Acetaminophen/ Hydrocodone Bitart 1 tab Q4HP PRN PO 01/13/25 22:00 Ondansetron HCl 4 mg Q4HP PRN IV 01/13/25 22:00 Docusate Sodium 100 mg BIDPRN PRN PO 01/13/25 22:00 Acetaminophen 650 mg Q6HP PRN PO 01/13/25 22:00 Amlodipine Besylate 5 mg DAILY PO 01/14/25 10:00 Exam Vital Signs Vital Signs Date Time Temp Pulse Resp B/P (MAP) Pulse Ox O2 Delivery O2 Flow Rate FiO2 01/13/25 22:50 97.3 65 12 129/63 (85) 99 97.3 01/13/25 18:24 Room Air* 0 21 General Appearance: Alert, Oriented X3, Cooperative, No acute distress HEENT: Atraumatic, PERRLA, EOMI, Mucous membr. moist/pink Respiratory: Normal air movement, Other (Diminished breath sounds) Cardiovascular: Regular rate, Normal S1, Normal S2, No murmurs Abdominal: Normal bowel sounds, Soft, No tenderness, No hepatospenomegaly, No masses Extremities: No clubbing, No cyanosis, No edema, Normal pulses, No tenderness/swelling Skin: No rashes, No breakdown, No significant lesion Neuro: Normal speech, Normal tone, Sensation intact, Cranial nerves 3-12 NL, Reflexes 2+, Other (Generalized weakness) Psych/Mental Status: Mental status NL, Mood NL Labs/Xrays Labs Test 01/13/25 22:46 01/13/25 22:00 01/13/25 21:04 01/13/25 17:24 Range/Units POC Glucose 161 H 70-106 mg/dl Urine Color Yellow Yellow Urine Clarity Turbid H Clear Urine pH 5.0 5.0-9.0 Urine Specific [place] 1.013 1.001-1.035 Urine Protein Trace H Negative Urine Ketones Trace Negative Urine Blood 1+ H Negative /uL Urine Nitrite Negative Negative Urine Bilirubin Negative Negative Urine Urobilinogen Normal Negative mg/dL Urine Leukocyte Esterase 2+ Negative /uL Urine RBC 9 0 - 3 /hpf Urine WBC Clumps Present None Seen /hpf Urine Microscopic WBC 493 H 0-3 /HPF Urine Squamous Epithelial Cells None seen <5 /hpf Urine Bacteria Mod H None Seen /hpf Urine Mucus Few None Seen Urine Glucose Normal Normal mg/dL Troponin I High Sensitivity 14 </=54 ng/L White Blood Count 7.8 4.4-10.8 10^3/uL Red Blood Count 4.81 4.5-5.90 10^6/uL Hemoglobin 15.9 13.5-17.5 g/dL Hematocrit 47.2 41.0-53.0 % Mean Corpuscular Volume 98.1 80.0-100.0 fL Mean Corpuscular Hemoglobin 33.1 H 28.0-32.0 pg Mean Corpuscular Hemoglobin Concent 33.7 32.0-36.0 g/dL Red Cell Distribution Width 15.0 H 11.8-14.3 % Platelet Count 258 140-450 10^3/uL Mean Platelet Volume 7.1 6.9-10.8 fL Neutrophils (%) (Auto) 67.4 37.0-80.0 % Lymphocytes (%) (Auto) 25.2 10.0-50.0 % Monocytes (%) (Auto) 6.6 0.0-12.0 % Eosinophils (%) (Auto) 0.4 0.0-7.0 % Basophils (%) (Auto) 0.4 0.0-2.0 % Neutrophils # (Auto) 5.3 1.6-8.6 10 ^3/uL Lymphocytes # (Auto) 2.0 0.4-5.4 10 ^3/uL Monocytes # (Auto) 0.5 0-1.3 10 ^3/uL Eosinophils # (Auto) 0 0-0.8 10 ^3/uL Basophils # (Auto) 0 0-0.2 10 ^3/uL Nucleated Red Blood Cells 0.1 % Sodium Level 138 136-145 mmol/L Potassium Level 3.6 3.5-5.1 mmol/L Chloride Level 102 98-107 mmol/L Carbon Dioxide Level 23 20-31 mmol/L Anion Gap 13 5-15 Blood Urea Nitrogen 26 H 9-23 mg/dL Creatinine 1.25 0.700-1.30 mg/dL Glomerular Filtration Rate Calc 58 >90 mL/min BUN/Creatinine Ratio 20.8 H 10.0-20.0 Serum Glucose 112 H 74-106 mg/dL Lactic Acid Level 1.9 0.4-2.0 mmol/L Calcium Level 9.3 8.7-10.4 mg/dL Magnesium Level 2.1 1.6-2.6 mg/dL Total Bilirubin 0.7 0.2-1.0 mg/dL Aspartate Amino Transferase (AST) 20 13-40 U/L Alanine Aminotransferase (ALT) 15 7-40 U/L Alkaline Phosphatase 51 46-116 U/L B-Type Natriuretic Peptide 34.78 0-100 pg/mL Total Protein 6.3 5.7-8.2 g/dL Albumin 4.2 3.2-4.8 g/dL PATIENT: BRITTANY CARPENTER ACCT: [id number] UNIT: [id number] : 1945 LOC: ER ROOM / BED: / AGE / SEX: 79 / M ADM STATUS: REG ER SERVICE 1643 ORDERING PHYSICIAN: BABAR WILSON DO PROCEDURE(s): ABPL - CT AB PEL WO CON-NO ORAL OR IV REASON: gen weak ORDER NUMBER(s): [id number], ACCESSION NUMBER(s): [id number] Procedure: CT CT AB PEL WO CON-NO ORAL OR IV 01/13/2025 04:53 PM Indication: gen cabrera Comparison Study: None Technique: Axial images were obtained and reformatted in coronal and sagittal planes. All CT scans at this medical facility are performed using dose modulation techniques as appropriate to a performed exam including the fol lowing: Automated exposure control was utilized; adjustment of the MA and/or KV according to patient size; and use of iterative reconstruction technique. CT Dose: CTDI volume is 8.7 mGy. Dose-length product is 438 mGy*cm FINDINGS: Lower Chest: Base of the lungs are clear. Coronary artery calcification noted. The heart is normal in size. Hepatobiliary: Moderately distended gallbladder without gallbladder wall thickening, pericholecystic edema or calcified gallstone. Several subcentimeter calcified granulomas are seen in the liver. No intrahepatic or extrahepatic ductal dilatation. Spleen: Unremarkable. Pancreas: Unremarkable. Adrenal Glands: Unremarkable. tract: The kidneys are normal in size bilaterally without hydronephrosis or nephrolithiasis. The urinary bladder is unremarkable. GI tract: The stomach is grossly normal in appearance. No evidence of small bowel obstruction. The large bowel is unremarkable. The appendix is normal. Lymphatics: No mesenteric, retroperitoneal or periportal lymphadenopathy. Vasculature: The abdominal aorta is normal in caliber. Diffuse calcified plaque formation is noted. Pelvic Organs: Unremarkable Bones/soft tissues: No acute abnormality. Other: None. IMPRESSION: 1. No CT evidence of acute abnormality in the abdomen or pelvis. ORDERING PHYSICIAN: BABAR WILSON DO PROCEDURE(s): HWOCT - HEAD WITHOUT CONTRAST REASON: [employer] ORDER NUMBER(s): [id number], ACCESSION NUMBER(s): [id number] EXAM: CT HEAD WITHOUT CONTRAST INDICATION: rick TECHNIQUE: CT of the head without intravenous contrast. Radiation Dose Information: CT Dose: CTDI volume is 53.76 mGy. Dose-length product is 971.18 mGy*cm The dose indicators for CT are the volume Computed Tomography (CT) Dose Index (CTDIvol) and the Dose Length Product (DLP), and are measured in units of mGy and mGy-cm, respectively. These indicators are not patient dose, but values generated from the CT scanner acquisition factors. The report includes radiation exposure data for exposures received during this examination. COMPARISON: HEAD WITHOUT CONTRAST on DOS: 05/12/22 FINDINGS: There is no evidence of acute intracranial hemorrhage, extra-axial collection, mass effect, midline shift, herniation or hydrocephalus. The ventricles, sulci and cisterns are age appropriate. The alexander-white differentiation is intact. Patchy periventricular and subcortical white matter hypoattenuation is nonspecific but may be related to small vessel ischemic disease. The visualized paranasal sinuses and mastoid air cells are clear. The surrounding soft tissues and osseous structures are unremarkable. IMPRESSION: 1. NO ACUTE INTRACRANIAL HEMORRHAGE 2. NO TERRITORIAL ISCHEMIA. ORDERING PHYSICIAN: BABAR WILSON DO PROCEDURE(s): CXRP - CHEST PORTABLE REASON: gen weak ORDER NUMBER(s): [id number], ACCESSION NUMBER(s): [id number] CHEST RADIOGRAPH Indication: gen weak Technique: Single frontal view of the chest was obtained COMPARISON: None FINDINGS: Lines and Tubes: None Lungs: Clear Pleura: No effusion. No pneumothorax. Cardiomediastinal contours: Unremarkable Bones: Unremarkable IMPRESSION: 1. No acute disease. Assessment/Plan Assessment/Plan Failure to thrive Generalized weakness Plan 1. Admit to telemetry unit 2. Breathing treatment 3. Pain control management 4. Management of fluids and electrolytes 5. Consultation for hospitalist 6. Diagnostic tests head CT 7. DVT prophylaxis-on aspirin 8. Repeat labs CBC, CMP in a.m. 9. Continue with current medical management 10. Treatment plan discussed with patient and RN. Patient verbalized understa nding. Plan discussed with: Patient, Other (RN) My Orders Orders - OLEGARIO GREGORIO DNP Procedure Category Date Status Time Aspirin Tablet PHA 01/14/25 In Process 10:00 Clopidogrel Bisulfate PHA 01/14/25 In Process (Plavix) 10:00 Atorvastatin (Lipitor) PHA 01/13/25 In Process 22:00 Tamsulosin PHA 01/14/25 In Process Hydrochloride (Flomax) 18:00 Consistent DIET 01/14/25 Transmitted Carb(Ccho)Diabetes Breakfast Metoprolol Tartrate PHA 01/13/25 In Process Tablet (Lopressor Ta 22:00 Hydralazine Injection PHA 01/13/25 In Process (Apresoline Inject 22:00 Glucose Blood PHA 01/13/25 In Process (Accu-Chek Comfort 22:00 Insulin R (Human) PHA 01/13/25 In Process (Insulin R) 22:00 Dextrose 50% Syringe PHA 01/13/25 In Process 22:00 Allergies VALENTIN 01/13/25 In Process 21:47 Code Status CODE 01/13/25 Transmitted 21:47 Sodium Chloride 0.9% PHA 01/13/25 In Process 22:00 Oxygen Per Hour RT 01/13/25 Transmitted 21:47 Hydrocodone-Acet PHA 01/13/25 In Process 5/325mg Tab ([place] 22:00 Ondansetron Hcl PHA 01/13/25 In Process (Zofran) 22:00 Docusate Sodium PHA 01/13/25 In Process Capsule (Colace 22:00 Fall Risk Precautions VALENTIN 01/13/[address] 21:47 Complete Blood Count LAB 01/14/25 Verified 04:00 Comprehensive LAB 01/14/25 Verified Metabolic Panel 04:00 Condition: Serious VALENTIN 01/13/25 In Process 21:47 Acetaminophen Tablet PHA 01/13/25 In Process (Tylenol Tablet) 22:00 Bedrest With Bathroom VALENTIN 01/13/25 In Process Privileg 21:47 Sequential VALENTIN 01/13/25 In Process Compression Device Amlodipine Tablet PHA 01/14/25 In Process (Norvasc Tablet) 10:00 Admit ADMIT 01/13/25 Verified 23:17 Nitroglycerin PHA 01/13/25 Verified Sublingual (Ntrostat 23:30 Morphine Sulfate PHA 01/13/25 Verified Injection 23:30 Notify Of Changes [facility] 01/13/25 Verified From Base 23:17 Submarine Worker For [facility] 01/13/25 Verified 24 Hours 23:17 Emergency Dysrhythmia VALENTIN 01/13/25 Verified Protocol 23:17 Rhythm Strips Once VALENTIN 01/13/25 Verified Every Shift 23:17 Oxygen By Nasal RT 01/13/25 Verified Cannula 23:17 Problem List: (1) Failure to thrive (2) Generalized weakness Date of Service: Jan 13, 2025 Billing Provider: OLEGARIO GREGORIO DNP Common Visit Codes: [id number] INP/OBS CARE (HIGH) OLEGARIO GREGORIO DNP Jan 13, 2025 23:18
[2025-01-13] MEDS ORDERED: NITROGLYCERIN 0.4 MG SL TAB SL PRN (23:30)
[2025-01-13] MEDS ORDERED: MORPHINE SULFATE INJ 2 MG/ml SYRG IV PRN (23:30)
[2025-01-14] VITALS (8 sets, daily range): BP systolic 114–171; BP diastolic 69–93; PULSE 67–82; RESP 16–20; TEMP 97.7–98.8; O2SAT 98–99
[2025-01-14 07:27] LABS: Basophils # (auto) 0 10 ^3/uL (0-0.2); Basophils % (auto) 0.2 % (0.0-2.0); Eosinophils # (auto) 0 10 ^3/uL (0-0.8); Eosinophils % (auto) 0.2 % (0.0-7.0); Hematocrit 45.1 % (41.0-53.0); Hemoglobin 15.6 g/dL (13.5-17.5); Lymphocytes % (auto) 12.7 % (10.0-50.0); Mean Corpuscular Hemoglobin 33.9 pg (28.0-32.0); Mean Corpuscular Hgb Conc. 34.6 g/dL (32.0-36.0); Mean Corpuscular Volume 97.9 fL (80.0-100.0); Monocytes # (auto) 0.5 10 ^3/uL (0-1.3); Monocytes % (auto) 6.6 % (0.0-12.0); Neutrophils # (auto) 6.6 10 ^3/uL (1.6-8.6); Neutrophils % (auto) 80.3 % (37.0-80.0); Platelet Count (auto) 256 10^3/uL (140-450); Red Cell Distribution Width 14.5 % (11.8-14.3); White Blood Cell 8.2 10^3/uL (4.4-10.8)
[2025-01-14 07:48] LABS: Alanine Aminotransferase 13 U/L (7-40); Albumin 4.1 g/dL (3.2-4.8); Alkaline Phosphatase 52 U/L (46-116); Calcium 9.5 mg/dL (8.7-10.4); Carbon Dioxide 21 mmol/L (20-31); Chloride 100 mmol/L (98-107); Potassium 3.8 mmol/L (3.5-5.1)
[2025-01-14 07:49] LABS: Anion Gap 18 (5-15); Aspartate Aminotransferase 15 U/L (13-40); BUN/Creatinine Ratio 20.8 (10.0-20.0); Bilirubin, Total 0.7 mg/dL (0.2-1.0); Sodium 139 mmol/L (136-145); Total Protein 6.5 g/dL (5.7-8.2)
[2025-01-14 07:50] LABS: Blood Urea Nitrogen 25 mg/dL (9-23); Glucose 121 mg/dL (74-106)
[2025-01-14] MEDS: CLOPIDOGREL BISULFATE 75 MG TAB PO SCH (09:08)
[2025-01-14] MEDS: ASPirin 81 mg TAB PO SCH (09:09)
[2025-01-14] MEDS: amLODIPine BESYLATE 5 MG TAB PO SCH (09:09)
--- NOTE | 2025-01-14 13:20 | DVHPN2 ---
Subjective 79-year-old male with a history of stroke in the past few years ago, diabetes, hypertension, coronary artery disease, gout, dyslipidemia comes with a chief complaint of generalized weakness and difficulty swallowing and altered level of consciousness According to his he became more confused and weak for the last 2-3 weeks and stopped eating He has become very weak to the point he is not ambulating He usually ambulates with a walker at home Here he was found to have a UTI Changes from previous H/P or p: Changes Eyes: No Pain, No Vision change, No Conjunctivae inflammation, No Eyelid inflammation, No Other, No Redness ENT: No Ear pain, No Ear discharge, No Nose pain, No Nose discharge, No Nose congestion, No Mouth pain, No Mouth swelling, No Throat pain, No Throat swelling, No Other Cardiovascular: No Chest Pain, No Palpitations, No Orthopnea, No Paroxysmal Noc. Dyspnea, No Edema, No Lt Headedness, No Other Respiratory: Cough (With phlegm.); No Dry, No Shortness of breath, No SOB with excertion, No Wheezing, No Hemoptysis, No Pleuritic Pain, No Sputum, No Other Gastrointestinal: No Nausea, No Vomiting, No Abdominal Pain, No Diarrhea, No Constipation, No Melena, No Hematochezia, No Other Genitourinary: No Dysuria, No Frequency, No Incontinence, No Hematuria, No Retention, No Other Musculoskeletal: No other, No neck pain, No shoulder pain, No arm pain, No back pain, No hand pain, No leg pain, No foot pain Skin: No Rash, No Lesions, No Jaundice, No Bruising, No Other Objective Vitals Vital Signs Date Time Temp Pulse Resp B/P (MAP) Pulse Ox O2 Delivery O2 Flow Rate FiO2 01/14/25 09:10 79 162/93 01/14/25 08:57 97.8 18 99 97.8 01/14/25 08:00 Room Air* 0 21 Intake/Output Intake and Output 01/14/25 07:00 Intake Total 1000 ml Output Total 0 ml Balance 1000 ml Intake Oral 0 ml IV Total 1000 ml Output Urine Total 0 ml General Appearance: Alert, Oriented X3, Cooperative, No acute distress Lungs: Clear to auscultation, Normal air movement Cardiovascular: Regular rate, Normal S1, Normal S2 Abdomen: Normal bowel sounds, Soft, No tenderness, No hepatospenomegaly Extremities: No edema Medications Current Medications Medications Dose Ordered Sig/Dorothy Route Start Time Stop Time Status Last Admin Dose Admin Aspirin 81 mg DAILY PO 01/14/25 10:00 01/14/25 09:09 81 MG Clopidogrel Bisulfate 75 mg DAILY PO 01/14/25 10:00 01/14/25 09:08 75 MG Atorvastatin Calcium 40 mg HS PO 01/13/25 22:00 Tamsulosin HCl 0.4 mg QPM PO 01/14/25 18:00 Hydralazine HCl 10 mg Q6HP PRN IV 01/13/25 22:00 Diagnostic Test (Pha) 1 strip ACHS 01/13/25 22:00 01/14/25 11:30 1 STRIP Insulin Human Regular ACHS SC 01/13/25 22:00 01/14/25 12:31 3 UNITS Dextrose 50 ml UD PRN IV 01/13/25 22:00 Acetaminophen/ Hydrocodone Bitart 1 tab Q4HP PRN PO 01/13/25 22:00 Ondansetron HCl 4 mg Q4HP PRN IV 01/13/25 22:00 Docusate Sodium 100 mg BIDPRN PRN PO 01/13/25 22:00 Acetaminophen 650 mg Q6HP PRN PO 01/13/25 22:00 Amlodipine Besylate 5 mg DAILY PO 01/14/25 10:00 01/14/25 09:09 5 MG Nitroglycerin 0.4 mg Q5MINP PRN SL 01/13/25 23:30 Morphine Sulfate 2 mg Q30M PRN IV 01/13/25 23:30 Ceftriaxone Sodium 50 ml @ 100 mls/hr DAILY@09 IV 01/15/25 09:00 Metoprolol Tartrate 25 mg BID PO 01/14/25 22:00 Benazepril HCl 20 mg BID PO 01/14/25 22:00 Laboratory Results Laboratory Tests 01/14/25 06:38 Chemistry Test 01/13/25 17:24 01/14/25 06:38 Albumin 4.2 g/dL (3.2-4.8) 4.1 g/dL (3.2-4.8) Calcium Level 9.3 mg/dL (8.7-10.4) 9.5 mg/dL (8.7-10.4) Magnesium Level 2.1 mg/dL (1.6-2.6) Total Protein 6.3 g/dL (5.7-8.2) 6.5 g/dL (5.7-8.2) Cardiac Markers Test 01/13/25 17:24 B-Type Natriuretic Peptide 34.78 pg/mL (0-100) LFT Test 01/13/25 17:24 01/14/25 06:38 Alanine Aminotransferase (ALT) 15 U/L (7-40) 13 U/L (7-40) Alkaline Phosphatase 51 U/L (46-116) 52 U/L (46-116) Aspartate Amino Transferase (AST) 20 U/L (13-40) 15 U/L (13-40) Total Bilirubin 0.7 mg/dL (0.2-1.0) 0.7 mg/dL (0.2-1.0) Urinalysis Test 01/13/25 22:00 Urine Color Yellow (Yellow) Urine Clarity Turbid (Clear) H Urine pH 5.0 (5.0-9.0) Urine Specific [place] 1.013 (1.001-1.035) Urine Protein Trace (Negative) H Urine Ketones Trace (Negative) Urine Blood 1+ /uL (Negative) H Urine Nitrite Negative (Negative) Urine Bilirubin Negative (Negative) Urine Urobilinogen Normal mg/dL (Negative) Urine Leukocyte Esterase 2+ /uL (Negative) Urine RBC 9 /hpf (0 - 3) Urine WBC Clumps Present /hpf (None Seen) Urine Microscopic WBC 493 /HPF (0-3) H Urine Squamous Epithelial Cells None seen /hpf (<5) Urine Bacteria Mod /hpf (None Seen) H Urine Mucus Few (None Seen) Urine Glucose Normal mg/dL (Normal) Assessment/Plan Assessment/Plan Acute metabolic encephalopathy due to UTI UTI 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 Dehydration Hypertension Coronary artery disease Type 2 diabetes Mixed hyperlipidemia Gout Generalized weakness Plan He received IV fluids overnight, discontinue now due to high blood pressure Start IV antibiotics Rocephin IV daily Resume the home medications including amlodipine and metoprolol and benazepril Continue aspirin and Plavix Physical therapy evaluation Swallow eval Pureed diet Lipitor Increase metoprolol to 25 mg twice a day home dose Monitor closely Discussed with the at the bedside Full code Plan discussed with: Patient, Spouse My Orders Orders - PABLITO GUERRA MD Procedure Category Date Status Time Pureed DIET 01/14/25 Transmitted Lunch * Swallow Request ST 01/14/25 Transmitted 12:54 Ceftriaxone 1gm/50ml PHA 01/15/25 In Process D5w (Rocephin) 09:00 Ceftriaxone 1gm/50ml PHA 01/14/25 In Process D5w (Rocephin) 13:00 Urine Bacterial LAURA 01/14/25 Logged Culture 12:54 Metoprolol Tartrate PHA 01/14/25 In Process Tablet (Lopressor Ta 22:00 Benazepril Hcl Tablet PHA 01/14/25 In Process (Lotensin Tablet) 22:00 Date of Service: Jan 14, 2025 Billing Provider: PABLITO GUERRA MD Common Visit Codes: NOT BILLABLE PABLITO GUERRA MD Jan 14, 2025 13:20
[2025-01-14] MEDS: cefTRIAXone 1GM/50ML D5W 50 ML IV ONE (17:38)
[2025-01-14] MEDS: BENAZEPRIL HCL 10 MG TAB PO ONE (17:39)
[2025-01-14] MEDS: TAMSULOSIN HYDROCHLORIDE 0.4 MG CAP PO SCH (18:07)
[2025-01-14] MEDS: METOPROLOL TARTRATE 25 MG TAB PO SCH (22:18)
[2025-01-14] MEDS: BENAZEPRIL HCL 10 MG TAB PO SCH (22:19)
[2025-01-15] VITALS (8 sets, daily range): BP systolic 110–148; BP diastolic 64–80; PULSE 55–62; RESP 16; TEMP 97.5–98.6; O2SAT 98
[2025-01-15] MEDS: cefTRIAXone 1GM/50ML D5W 50 ML IV SCH (09:00)
--- NOTE | 2025-01-15 11:14 | DVHPN2 ---
Subjective Better More alert Changes from previous H/P or p: Changes Eyes: No Pain, No Vision change, No Conjunctivae inflammation, No Eyelid inflammation, No Other, No Redness ENT: No Ear pain, No Ear discharge, No Nose pain, No Nose discharge, No Nose congestion, No Mouth pain, No Mouth swelling, No Throat pain, No Throat swelling, No Other Cardiovascular: No Chest Pain, No Palpitations, No Orthopnea, No Paroxysmal Noc. Dyspnea, No Edema, No Lt Headedness, No Other Respiratory: Cough (With phlegm.); No Dry, No Shortness of breath, No SOB with excertion, No Wheezing, No Hemoptysis, No Pleuritic Pain, No Sputum, No Other Gastrointestinal: No Nausea, No Vomiting, No Abdominal Pain, No Diarrhea, No Constipation, No Melena, No Hematochezia, No Other Genitourinary: No Dysuria, No Frequency, No Incontinence, No Hematuria, No Retention, No Other Musculoskeletal: No other, No neck pain, No shoulder pain, No arm pain, No back pain, No hand pain, No leg pain, No foot pain Skin: No Rash, No Lesions, No Jaundice, No Bruising, No Other Objective Vitals Vital Signs Date Time Temp Pulse Resp B/P (MAP) Pulse Ox O2 Delivery O2 Flow Rate FiO2 01/15/25 09:05 114/66 01/15/25 09:03 62 01/15/25 09:00 98.0 16 98 98.0 01/15/25 08:10 Room Air* 0 21 Intake/Output Intake and Output 01/15/25 07:00 Intake Total 580 ml Output Total 1110 ml Balance -530 ml Intake Oral 580 ml Output Urine Total 1110 ml General Appearance: Alert, Oriented X3, Cooperative, No acute distress Lungs: Clear to auscultation, Normal air movement Cardiovascular: Regular rate, Normal S1, Normal S2 Abdomen: Normal bowel sounds, Soft, No tenderness, No hepatospenomegaly Extremities: No edema Medications Current Medications Medications Dose Ordered Sig/Dorothy Route Start Time Stop Time Status Last Admin Dose Admin Aspirin 81 mg DAILY PO 01/14/25 10:00 01/15/25 09:02 81 MG Clopidogrel Bisulfate 75 mg DAILY PO 01/14/25 10:00 01/15/25 09:03 75 MG Atorvastatin Calcium 40 mg HS PO 01/13/25 22:00 01/14/25 22:17 40 MG Tamsulosin HCl 0.4 mg QPM PO 01/14/25 18:00 01/14/25 18:07 0.4 MG Hydralazine HCl 10 mg Q6HP PRN IV 01/13/25 22:00 Diagnostic Test (Pha) 1 strip ACHS 01/13/25 22:00 01/15/25 06:01 1 STRIP Insulin Human Regular ACHS SC 01/13/25 22:00 01/15/25 06:02 3 UNITS Dextrose 50 ml UD PRN IV 01/13/25 22:00 Acetaminophen/ Hydrocodone Bitart 1 tab Q4HP PRN PO 01/13/25 22:00 Ondansetron HCl 4 mg Q4HP PRN IV 01/13/25 22:00 Docusate Sodium 100 mg BIDPRN PRN PO 01/13/25 22:00 Acetaminophen 650 mg Q6HP PRN PO 01/13/25 22:00 Amlodipine Besylate 5 mg DAILY PO 01/14/25 10:00 01/14/25 09:09 5 MG Nitroglycerin 0.4 mg Q5MINP PRN SL 01/13/25 23:30 Morphine Sulfate 2 mg Q30M PRN IV 01/13/25 23:30 Ceftriaxone Sodium 50 ml @ 100 mls/hr DAILY@09 IV 01/15/25 09:00 01/15/25 09:00 100 MLS/HR Metoprolol Tartrate 25 mg BID PO 01/14/25 22:00 01/15/25 09:03 25 MG Benazepril HCl 20 mg BID PO 01/14/25 22:00 01/15/25 09:05 20 MG Laboratory Results Laboratory Tests 01/14/25 06:38 Urinalysis Test 01/13/25 22:00 Urine Color Yellow (Yellow) Urine Clarity Turbid (Clear) H Urine pH 5.0 (5.0-9.0) Urine Specific [place] 1.013 (1.001-1.035) Urine Protein Trace (Negative) H Urine Ketones Trace (Negative) Urine Blood 1+ /uL (Negative) H Urine Nitrite Negative (Negative) Urine Bilirubin Negative (Negative) Urine Urobilinogen Normal mg/dL (Negative) Urine Leukocyte Esterase 2+ /uL (Negative) Urine RBC 9 /hpf (0 - 3) Urine WBC Clumps Present /hpf (None Seen) Urine Microscopic WBC 493 /HPF (0-3) H Urine Squamous Epithelial Cells None seen /hpf (<5) Urine Bacteria Mod /hpf (None Seen) H Urine Mucus Few (None Seen) Urine Glucose Normal mg/dL (Normal) Assessment/Plan Assessment/Plan Acute metabolic encephalopathy due to UTI UTI 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 Dehydration Hypertension Coronary artery disease Type 2 diabetes Mixed hyperlipidemia Gout Generalized weakness Plan He received IV fluids overnight, discontinue now due to high blood pressure Start IV antibiotics Rocephin IV daily Resume the home medications including amlodipine and metoprolol and benazepril Continue aspirin and Plavix Physical therapy evaluation Swallow eval Pureed diet Lipitor Increase metoprolol to 25 mg twice a day home dose Monitor closely Discussed with the at the bedside Full code 01/15/25: Continue IV antibiotics Physical therapy Advance diet as tolerated Plan discussed with: Patient, Other My Orders Orders - PABLITO GUERRA MD Procedure Category Date Status Time Pureed DIET 01/14/25 Transmitted Lunch * Swallow Request ST 01/14/25 Transmitted 12:54 Ceftriaxone 1gm/50ml PHA 01/15/25 In Process D5w (Rocephin) 09:00 Urine Bacterial LAURA 01/14/25 In Process Culture 12:54 Metoprolol Tartrate PHA 01/14/25 In Process Tablet (Lopressor Ta 22:00 Benazepril Hcl Tablet PHA 01/14/25 In Process (Lotensin Tablet) 22:00 Pt Request For Service PT 01/14/25 Logged 13:19 * Wound Consult CONS 01/14/25 Transmitted Date of Service: Jan 15, 2025 Billing Provider: PABLITO GUERRA MD Common Visit Codes: NOT BILLABLE PABLITO GUERRA MD Jan 15, 2025 11:14
[2025-01-16] VITALS (8 sets, daily range): BP systolic 109–125; BP diastolic 60–71; PULSE 52–80; RESP 16–17; TEMP 97.4–98.1; O2SAT 97–99
--- NOTE | 2025-01-16 09:50 | DVHPN2 ---
Subjective He has been bradycardic and had a 5 second pause last night The also is reporting that the patient has been having episodes at home where he gets altered, shaking, rolling up his eyes and doesn't remember afterwards raising possibility of seizures Changes from previous H/P or p: Changes Eyes: No Pain, No Vision change, No Conjunctivae inflammation, No Eyelid inflammation, No Other, No Redness ENT: No Ear pain, No Ear discharge, No Nose pain, No Nose discharge, No Nose congestion, No Mouth pain, No Mouth swelling, No Throat pain, No Throat swelling, No Other Cardiovascular: No Chest Pain, No Palpitations, No Orthopnea, No Paroxysmal Noc. Dyspnea, No Edema, No Lt Headedness, No Other Respiratory: Cough (With phlegm.); No Dry, No Shortness of breath, No SOB with excertion, No Wheezing, No Hemoptysis, No Pleuritic Pain, No Sputum, No Other Gastrointestinal: No Nausea, No Vomiting, No Abdominal Pain, No Diarrhea, No Constipation, No Melena, No Hematochezia, No Other Genitourinary: No Dysuria, No Frequency, No Incontinence, No Hematuria, No Retention, No Other Musculoskeletal: No other, No neck pain, No shoulder pain, No arm pain, No back pain, No hand pain, No leg pain, No foot pain Skin: No Rash, No Lesions, No Jaundice, No Bruising, No Other Objective Vitals Vital Signs Date Time Temp Pulse Resp B/P (MAP) Pulse Ox O2 Delivery O2 Flow Rate FiO2 01/16/25 09:35 53 114/68 01/16/25 09:12 97.8 17 97 97.8 01/15/25 20:00 Room Air* 0 21 Intake/Output Intake and Output 01/16/25 07:00 Intake Total 2620 ml Output Total 1100 ml Balance 1520 ml Intake Oral 2570 ml IV Total 50 ml Output Urine Total 1100 ml General Appearance: Alert, Oriented X3, Cooperative, No acute distress Lungs: Clear to auscultation, Normal air movement Cardiovascular: Regular rate, Normal S1, Normal S2 Abdomen: Normal bowel sounds, Soft, No tenderness, No hepatospenomegaly Extremities: No edema Medications Current Medications Medications Dose Ordered Sig/Dorothy Route Start Time Stop Time Status Last Admin Dose Admin Aspirin 81 mg DAILY PO 01/14/25 10:00 01/16/25 09:34 81 MG Clopidogrel Bisulfate 75 mg DAILY PO 01/14/25 10:00 01/16/25 09:34 75 MG Atorvastatin Calcium 40 mg HS PO 01/13/25 22:00 01/15/25 22:12 40 MG Tamsulosin HCl 0.4 mg QPM PO 01/14/25 18:00 01/15/25 17:53 0.4 MG Hydralazine HCl 10 mg Q6HP PRN IV 01/13/25 22:00 Diagnostic Test (Pha) 1 strip ACHS 01/13/25 22:00 01/16/25 06:04 1 STRIP Insulin Human Regular ACHS SC 01/13/25 22:00 01/16/25 06:05 4 UNITS Dextrose 50 ml UD PRN IV 01/13/25 22:00 Acetaminophen/ Hydrocodone Bitart 1 tab Q4HP PRN PO 01/13/25 22:00 Ondansetron HCl 4 mg Q4HP PRN IV 01/13/25 22:00 Docusate Sodium 100 mg BIDPRN PRN PO 01/13/25 22:00 Acetaminophen 650 mg Q6HP PRN PO 01/13/25 22:00 Amlodipine Besylate 5 mg DAILY PO 01/14/25 10:00 01/16/25 09:34 5 MG Nitroglycerin 0.4 mg Q5MINP PRN SL 01/13/25 23:30 Morphine Sulfate 2 mg Q30M PRN IV 01/13/25 23:30 Ceftriaxone Sodium 50 ml @ 100 mls/hr DAILY@09 IV 01/15/25 09:00 01/16/25 09:32 100 MLS/HR Metoprolol Tartrate 25 mg BID PO 01/14/25 22:00 01/15/25 22:12 25 MG Benazepril HCl 20 mg BID PO 01/14/25 22:00 01/16/25 09:33 20 MG Laboratory Results Laboratory Tests 01/14/25 06:38 Urinalysis Test 01/13/25 22:00 Urine Color Yellow (Yellow) Urine Clarity Turbid (Clear) H Urine pH 5.0 (5.0-9.0) Urine Specific [place] 1.013 (1.001-1.035) Urine Protein Trace (Negative) H Urine Ketones Trace (Negative) Urine Blood 1+ /uL (Negative) H Urine Nitrite Negative (Negative) Urine Bilirubin Negative (Negative) Urine Urobilinogen Normal mg/dL (Negative) Urine Leukocyte Esterase 2+ /uL (Negative) Urine RBC 9 /hpf (0 - 3) Urine WBC Clumps Present /hpf (None Seen) Urine Microscopic WBC 493 /HPF (0-3) H Urine Squamous Epithelial Cells None seen /hpf (<5) Urine Bacteria Mod /hpf (None Seen) H Urine Mucus Few (None Seen) Urine Glucose Normal mg/dL (Normal) Assessment/Plan Assessment/Plan Acute metabolic encephalopathy due to UTI UTI 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 Dehydration Hypertension Coronary artery disease Type 2 diabetes Mixed hyperlipidemia Gout Generalized weakness Plan He received IV fluids overnight, discontinue now due to high blood pressure Start IV antibiotics Rocephin IV daily Resume the home medications including amlodipine and metoprolol and benazepril Continue aspirin and Plavix Physical therapy evaluation Swallow eval Pureed diet Lipitor Increase metoprolol to 25 mg twice a day home dose Monitor closely Discussed with the at the bedside Full code 01/15/25: Continue IV antibiotics Physical therapy Advance diet as tolerated 01/16/25: Bradycardia with pauses: Consult cardiology ALOC, rule out seizures: Consult neurology UTI: Rocephin Weakness: Physical therapy Plan discussed with: Patient, Spouse My Orders Orders - PABLITO GUERRA MD Procedure Category Date Status Time Mechanical Soft Diet DIET 01/15/25 Transmitted Lunch Cleanse Wound With VALENTIN 01/15/25 In Process Mild Soap A 09:46 * Cardiology Consult CONS 01/16/25 Transmitted 09:45 *Consult Dr. Hair CONS 01/16/25 Verified Mathews 09:45 Date of Service: Jan 16, 2025 Billing Provider: PABLITO GUERRA MD Common Visit Codes: NOT BILLABLE PABLITO GUERRA MD Jan 16, 2025 09:50
--- NOTE | 2025-01-16 11:05 | DVHINCON2 ---
Date Seen: Jan 16, 2025 Referring Physician MD Christopher Reason for Consultation Arrhythmias, pauses History of Present Illness This is an 79 year-old man who presented to the emergency room with a chief complaint of generalized weakness x 2 weeks. The patient is a poor historian. Information obtained from at bedside with status the patient presents with complaints of progressive generalized weakness, poor appetite, and significant weight loss. Cardiology consulted in the setting of sinus pauses. alarm security or surveillance monitor reviewed revealing intermittent sinus bradycardia with a heart rate as low as 35 bpm and a one time event of a sinus pause up to 5 sec. A twelve lead electrocardiogram revealed a sinus rhythm with T-wave inversion to lateral leads and an associated QTc at 570 ms. During admission and home medication included Metoprolol 25 mg BID with latest administration last night. Denies chest pain, SOB, palpitations, visual disturbances, or syncopal events. Denies following up in the outpatient setting with a primary pediatric genetic counselor. Significant medical history includes coronary artery disease status post triple vessel coronary artery bypass graft in 2001 and off antiplatelet therapy, bilateral internal carotid artery stenosis of severe degree, hypertension, dyslipidemia, cerebrovascular accident with right-sided hemiparesis, insulin-dependent diabetes mellitus, benign prostatic hyperplasia, and gout. Past Medical History Past medical history reviewed. No other significant than mentioned above. Past Surgical History Triple-vessel CABG, 2001 Family History: Patient reports no known family medical history. Family History Family history reviewed. Social History Denies the use of illicit drugs, alcohol, or tobacco use. Allergies: Coded Allergies: NO KNOWN ALLERGIES (Unverified , 05/12/22) Home Meds Active Scripts Clopidogrel Bisulfate (CLOPIDOGREL) 75 Mg Tab, 75 MG PO DAILY for 30 Days, #30 TAB 5 Refills Prov:PABLITO GUERRA MD 05/14/22 Reported Medications Insulin NPH (Human) (Isophane) (Humulin N) 100 Unit/Ml Inj, 25 UNIT SC BIDBRS, INJ 05/13/22 Hydrochlorothiazide (Hydrochlorothiazide) 12.5 Mg Cap, 12.5 MG PO DAILY for 30 Days, MG 05/13/22 Hydrocodone-Acetaminophen (Hydrocodone Bitartrate/AC 5-325 mg) 1 Tab Tab, 1 TAB PO Q8HP PRN for PAIN SCALE 1 THRU 6, TAB 05/13/22 Cholecalciferol (Vitamin D3) 20 Mcg Tab, 25 MCG PO DAILY, TAB 05/13/22 Cholecalciferol (VITAMIN D3) 2,000 Unit Tab, 1000 UNIT PO DAILY, TAB 05/13/22 Metoprolol Tartrate (Metoprolol Tartrate) 25 Mg Tab, 25 MG PO BID for 30 Days, MG 05/13/22 Tamsulosin Hcl (Flomax) 0.4 Mg Cap, 1 CAP PO DAILY, #30 CAP 11 Refills 05/13/22 Benazepril Hcl (Benazepril Hcl) 40 Mg Tab, 40 MG PO DAILY for 30 Days, MG 05/13/22 Amlodipine Besylate (NORVASC TABLET) 5 Mg Tb, 2 TAB PO DAILY, #30 TAB 5 Refills 05/13/22 Glimepiride (Glimepiride) 2 Mg Tab, 2 MG PO BID for 30 Days, MG 05/13/22 Aspirin (Aspir-81) 81 Mg Tab, 1 TAB PO DAILY, #30 TAB 5 Refills 05/13/22 Atorvastatin Calcium (ATORVASTATIN CALCIUM) 80 Mg Tab, 1 TAB PO DAILY, #30 TAB 5 Refills 05/13/22 Home Meds Home medications reviewed. Review of Systems Constitutional: Generalized weakness, poor appetite, weight loss Ears, Nose, & Throat: No symptom reported Eyes: No symptom reported Neurological: No symptoms reported Pulmonary/Respiratory: No symptom reported Cardiovascular: No symptom reported Gastrointestinal: No symptom reported Genitourinary: No symptom reported Musculoskeletal: No symptom reported Skin: No symptom reported Psychiatric: No symptom reported Endocrine: No symptom reported Hemotologic/Lymphatic: No symptom reported Vital Signs Vital Signs Date Time Temp Pulse Resp B/P (MAP) Pulse Ox O2 Delivery O2 Flow Rate FiO2 01/16/25 09:35 53 114/68 01/16/25 09:12 97.8 17 97 97.8 01/15/25 20:00 Room Air* 0 21 Physical Exam General Appearance: Cooperative. Lethargic. In no acute distress Head Exam: Normal inspection Neck Exam: Normal inspection. Non-tender. Normal alignment Pulmonary/Respiratory: Chest non-tender. Clear bilateral breath sounds Cardiovascular/Chest: Regular rate and rhythm. S1, S2. Sinus rhythm with intermittent bradycardia. No murmurs. No JVD. Peripheral Pulses: 2+ Radial (R). 2+ Radial (L). 2+ Pedal (R). 2+ Pedal (L) Abdominal Exam: Normal bowel sounds. Soft. Nontender. No hepatospenomegaly. No masses Ankle Exam: Negative ankle edema Lower extremities: Negative lower extremity edema Neuro/Mental Status: A&O x3. Coherent Thoughts/Psych: Normal thought pattern. Appropriate mood and affect. Very passive Appearance: In no acute distress Skin Exam: Normal inspection. Normal color. Warm. Dry Labs/Diagnostic Data Labs Test 01/16/25 05:44 01/14/25 06:38 01/13/25 22:00 01/13/25 21:04 Range/Units POC Glucose 219 H 70-106 mg/dl White Blood Count 8.2 4.4-10.8 10^3/uL Red Blood Count 4.60 4.5-5.90 10^6/uL Hemoglobin 15.6 13.5-17.5 g/dL Hematocrit 45.1 41.0-53.0 % Mean Corpuscular Volume 97.9 80.0-100.0 fL Mean Corpuscular Hemoglobin 33.9 H 28.0-32.0 pg Mean Corpuscular Hemoglobin Concent 34.6 32.0-36.0 g/dL Red Cell Distribution Width 14.5 H 11.8-14.3 % Platelet Count 256 140-450 10^3/uL Mean Platelet Volume 7.4 6.9-10.8 fL Neutrophils (%) (Auto) 80.3 H 37.0-80.0 % Lymphocytes (%) (Auto) 12.7 10.0-50.0 % Monocytes (%) (Auto) 6.6 0.0-12.0 % Eosinophils (%) (Auto) 0.2 0.0-7.0 % Basophils (%) (Auto) 0.2 0.0-2.0 % Neutrophils # (Auto) 6.6 1.6-8.6 10 ^3/uL Lymphocytes # (Auto) 1.0 0.4-5.4 10 ^3/uL Monocytes # (Auto) 0.5 0-1.3 10 ^3/uL Eosinophils # (Auto) 0 0-0.8 10 ^3/uL Basophils # (Auto) 0 0-0.2 10 ^3/uL Nucleated Red Blood Cells 0.0 % Sodium Level 139 136-145 mmol/L Potassium Level 3.8 3.5-5.1 mmol/L Chloride Level 100 98-107 mmol/L Carbon Dioxide Level 21 20-31 mmol/L Anion Gap 18 H 5-15 Blood Urea Nitrogen 25 H 9-23 mg/dL Creatinine 1.20 0.700-1.30 mg/dL Glomerular Filtration Rate Calc 61 >90 mL/min BUN/Creatinine Ratio 20.8 H 10.0-20.0 Serum Glucose 121 H 74-106 mg/dL Calcium Level 9.5 8.7-10.4 mg/dL Total Bilirubin 0.7 0.2-1.0 mg/dL Aspartate Amino Transferase (AST) 15 13-40 U/L Alanine Aminotransferase (ALT) 13 7-40 U/L Alkaline Phosphatase 52 46-116 U/L Total Protein 6.5 5.7-8.2 g/dL Albumin 4.1 3.2-4.8 g/dL Urine Color Yellow Yellow Urine Clarity Turbid H Clear Urine pH 5.0 5.0-9.0 Urine Specific [place] 1.013 1.001-1.035 Urine Protein Trace H Negative Urine Ketones Trace Negative Urine Blood 1+ H Negative /uL Urine Nitrite Negative Negative Urine Bilirubin Negative Negative Urine Urobilinogen Normal Negative mg/dL Urine Leukocyte Esterase 2+ Negative /uL Urine RBC 9 0 - 3 /hpf Urine WBC Clumps Present None Seen /hpf Urine Microscopic WBC 493 H 0-3 /HPF Urine Squamous Epithelial Cells None seen <5 /hpf Urine Bacteria Mod H None Seen /hpf Urine Mucus Few None Seen Urine Glucose Normal Normal mg/dL Troponin I High Sensitivity 14 </=54 ng/L Test 01/13/25 17:24 Range/Units Lactic Acid Level 1.9 0.4-2.0 mmol/L Magnesium Level 2.1 1.6-2.6 mg/dL B-Type Natriuretic Peptide 34.78 0-100 pg/mL Microbiology Date/Time Source Procedure Growth Status 01/15/25 05:15 Voided Urine Urine Culture - Preliminary Resulted Assessment Beta-sienna induced bradycardia/sinus pause Prolonged QTc at 570 ms Coronary artery disease status post triple-vessel CABG (2001) Severe bilateral internal carotid artery stenosis Hx CVA with right-sided hemiparesis Hypertension Dyslipidemia Failure to thrive Plan/Recommendation (Dr. Mendes) Likely beta-sienna induced bradycardia with an associated sinus pause. We recommend discontinuation of metoprolol with latest administration last night. Initiate glucagon therapy as the primary antidote for beta-sienna toxicity. Avoid AV akshat blocking agents. Given prolonged QTc at 570 ms the patient is at risk for torsades de pointes. Replete electrolytes as necessary. Avoid offending agents such as macrolides, fluoroquinolones, and SSRIs. Continue neurological recommendations. Notify Cardiology if further bradycardic events persist including a HR <40 bpm, high-degree AV blocks, or sinus pauses present. Otherwise we will sign off at this time. Kindly call if in need to re-consult. Thank you for allowing us to participate in this patient's care. This medical document was created using an electronic medical record system with voice recognition software and computerized dictation system. Although this document has been carefully reviewed, there might still be some phonetic and typographical errors. Occasional wrong-word or ``sound-alike substitutions may have occurred due to the inherent limitations of voice recognition software. These areas are purely typographical due to imperfections of the software programs and do not reflect any compromise in the patient's medical care. Please read the chart carefully and recognize, using context, where these substitutions have occurred. Plan discussed with: Patient, Other NYHA Physical activity limitations: NA Date of Service: Jan 16, 2025 Billing Provider: CIPRIANO YO Cardiology Common Codes: [id number] INP/OBS CARE (High) CIPRIANO YO Jan 16, 2025 11:05
--- NOTE | 2025-01-16 11:07 | ECG ---
[facility] Test Date: 2025-01-13 Test Time: 16:49:17 Pat Name: BRITTANY CARPENTER Department: ER Room: 0288T A Gender: M Leather Roller: DAT : 1945 Requested By: BABAR WILSON Order Number: [id number] Reading MD: Deondre Mendes Measurements Intervals [place] Rate: 66 P: -28 NM: 153 QRS: -21 QRSD: 101 T: -13 QT: 543 QTc: 570 Interpretive Statements Sinus rhythm Borderline left axis deviation Nonspecific T abnrm, anterolateral leads Prolonged QT interval Electronically Signed On 01-18-2025 21:11:30 PDT by Deondre Mendes Please click the below link to view image of tracing.
[2025-01-16] MEDS: GLUCAGON EMERG KIT 1mg/1ml IV ONE (14:10)
--- NOTE | 2025-01-16 22:26 | DVHINCON2 ---
Date of service: Jan 16, [address] White Reason for Consultation ALOC, rule out seizure History of Present Illness Dr. Terry is a 79 years old right-handed gentleman with a history of hypertension, diabetes, dyslipidemia, coronary artery disease, gout, he came to the hospital on 01/13/25 with a chief company of progressive general weakness, unable to ambulate, poor appetite. At thist time, he was awake, oriented to person, place, talks with weak voice, not able to give a history, the family available for the history I saw him on 05/12/2022 for stroke (possible MR brain, bilateral carotid stenosis) Apparently, the patient was has been progressively getting weaker, with poor appetite, refused eating for about one week I saw him on 05/12/2022 for acute right-sided weakness, MRI confirmed acute stroke, CT angio confirmed bilateral severe carotid stenosis, but the patient was made to have revascularization as outpatient Dr. White mentioned note dated on 01/16/2025 that the patient was related episodic event where he became altered, shaking, eyes rolling up, with amnesia afterwards [phone], is a wrong number [phone] no answer (2019) Urinalysis, 01/13/2025: WBC: Nine, urine WBC clumps: Present. Urine leukocyte esterase: 2+ CBC, 01/14/2025: Unremarkable BUN/CR, 01/13/2025: 26/1.5 2, 01/14/2025: 25/1.2 Liver function tests, 01/13/2025: Unremarkable Echocardiogram, 05/13/2022: Unremarkable CT head, 01/13/2025: 1. NO ACUTE INTRACRANIAL HEMORRHAGE 2. NO TERRITORIAL ISCHEMIA. CTA head, neck, 05/13/2022: Right proximal internal carotid artery with greater than 90% stenosis of a calcified atherosclerotic disease. This is at the level of the carotid bulbs. Left proximal internal carotid artery with 70% stenosis from calcified atherosclerotic disease. This is at the level of the carotid bulb MRI head, 05/13/2022: There is acute left posterior internal capsule-gutierrez radi vanessa nonhemorrhagic infarct. 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 Family History he does not remember major medical problem the family Social History he was a tobacco smoker, he denies a history of alcohol recreational substance abuse Allergies: Coded Allergies: NO KNOWN ALLERGIES (Unverified , 05/12/22) Home Meds Active Scripts Clopidogrel Bisulfate (CLOPIDOGREL) 75 Mg Tab, 75 MG PO DAILY for 30 Days, #30 TAB 5 Refills Prov:PABLITO WHITE MD 05/14/22 Reported Medications Insulin NPH (Human) (Isophane) (Humulin N) 100 Unit/Ml Inj, 25 UNIT SC BIDBRS, INJ 05/13/22 Hydrochlorothiazide (Hydrochlorothiazide) 12.5 Mg Cap, 12.5 MG PO DAILY for 30 Days, MG 05/13/22 Hydrocodone-Acetaminophen (Hydrocodone Bitartrate/AC 5-325 mg) 1 Tab Tab, 1 TAB PO Q8HP PRN for PAIN SCALE 1 THRU 6, TAB 05/13/22 Cholecalciferol (Vitamin D3) 20 Mcg Tab, 25 MCG PO DAILY, TAB 05/13/22 Cholecalciferol (VITAMIN D3) 2,000 Unit Tab, 1000 UNIT PO DAILY, TAB 05/13/22 Metoprolol Tartrate (Metoprolol Tartrate) 25 Mg Tab, 25 MG PO BID for 30 Days, MG 05/13/22 Tamsulosin Hcl (Flomax) 0.4 Mg Cap, 1 CAP PO DAILY, #30 CAP 11 Refills 05/13/22 Benazepril Hcl (Benazepril Hcl) 40 Mg Tab, 40 MG PO DAILY for 30 Days, MG 05/13/22 Amlodipine Besylate (NORVASC TABLET) 5 Mg Tb, 2 TAB PO DAILY, #30 TAB 5 Refills 05/13/22 Glimepiride (Glimepiride) 2 Mg Tab, 2 MG PO BID for 30 Days, MG 05/13/22 Aspirin (Aspir-81) 81 Mg Tab, 1 TAB PO DAILY, #30 TAB 5 Refills 05/13/22 Atorvastatin Calcium (ATORVASTATIN CALCIUM) 80 Mg Tab, 1 TAB PO DAILY, #30 TAB 5 Refills 05/13/22 Review of Systems As above, the other system negative Vital Signs Vital Signs Date Time Temp Pulse Resp B/P (MAP) Pulse Ox O2 Delivery O2 Flow Rate FiO2 01/16/25 20:00 66 16 Room Air* 0 21 01/16/25 17:42 98.0 116/60 (78) 98 98.0 Physical Exam GENERAL EXAM: General: the patient is well developed and nourished. No acute distress. HEENT: Normocephalic, neck is supple, no carotid bruits. No mass. RESPIRATORY: Normal respiratory effort with symmetrical lung expansion. Lungs clear to auscultation. CARDIOVASCULAR: Regular rate and rhythm with no murmurs. S1, S2. ABDOMEN: Soft, nontender, normal bowel sound No tenderness to palpation in the cervical spine NEUROLOGICAL: MENTAL STATUS: Awake and alert. Oriented to person, place, not able to provide a history SPEECH, LANGUAGE, HIGHER CORTICAL FUNCTION: no aphasia or dysathria. CRANIAL NERVES: #2: Intact visual adams to confrontation. The optic discs were sharp #3,4,6: Pupils are equal, round and reactive. EOMs full and conjugate. No nystagmus. #5: Facial sensation intact in all three divisions bilaterally. Mandibular strength intact. #7: Facial muscles symmetrical and strength intact. #8: Hearing grossly normal to voice. #9,10: Uvula and soft palate rise in the midline. Swallow and voice are normal. #11: Trapezius and sternomastoid strength intact bilaterally. #12: Tongue midline. No fasciculations or atrophy. SENSATION: Sensation to touch and pinprick is normal. MOTOR: Normal tone in the upper and lower extremity. Intrinsic hand muscle atrophy. No fasciculations. No abnormal movements or posturing. Muscle strength of the major groups in the arms is 5/5, legs: 405/5 REFLEXES: Deep tendon reflexes are symmetrical. No pathological reflexes. CEREBELLAR/COORDINATION: Finger to nose are normal bilaterally. GAIT/STATION: deferred Labs/Diagnostic Data Labs Test 01/16/25 17:34 01/14/25 06:38 01/13/25 22:00 01/13/25 21:04 Range/Units POC Glucose 215 H 70-106 mg/dl White Blood Count 8.2 4.4-10.8 10^3/uL Red Blood Count 4.60 4.5-5.90 10^6/uL Hemoglobin 15.6 13.5-17.5 g/dL Hematocrit 45.1 41.0-53.0 % Mean Corpuscular Volume 97.9 80.0-100.0 fL Mean Corpuscular Hemoglobin 33.9 H 28.0-32.0 pg Mean Corpuscular Hemoglobin Concent 34.6 32.0-36.0 g/dL Red Cell Distribution Width 14.5 H 11.8-14.3 % Platelet Count 256 140-450 10^3/uL Mean Platelet Volume 7.4 6.9-10.8 fL Neutrophils (%) (Auto) 80.3 H 37.0-80.0 % Lymphocytes (%) (Auto) 12.7 10.0-50.0 % Monocytes (%) (Auto) 6.6 0.0-12.0 % Eosinophils (%) (Auto) 0.2 0.0-7.0 % Basophils (%) (Auto) 0.2 0.0-2.0 % Neutrophils # (Auto) 6.6 1.6-8.6 10 ^3/uL Lymphocytes # (Auto) 1.0 0.4-5.4 10 ^3/uL Monocytes # (Auto) 0.5 0-1.3 10 ^3/uL Eosinophils # (Auto) 0 0-0.8 10 ^3/uL Basophils # (Auto) 0 0-0.2 10 ^3/uL Nucleated Red Blood Cells 0.0 % Sodium Level 139 136-145 mmol/L Potassium Level 3.8 3.5-5.1 mmol/L Chloride Level 100 98-107 mmol/L Carbon Dioxide Level 21 20-31 mmol/L Anion Gap 18 H 5-15 Blood Urea Nitrogen 25 H 9-23 mg/dL Creatinine 1.20 0.700-1.30 mg/dL Glomerular Filtration Rate Calc 61 >90 mL/min BUN/Creatinine Ratio 20.8 H 10.0-20.0 Serum Glucose 121 H 74-106 mg/dL Calcium Level 9.5 8.7-10.4 mg/dL Total Bilirubin 0.7 0.2-1.0 mg/dL Aspartate Amino Transferase (AST) 15 13-40 U/L Alanine Aminotransferase (ALT) 13 7-40 U/L Alkaline Phosphatase 52 46-116 U/L Total Protein 6.5 5.7-8.2 g/dL Albumin 4.1 3.2-4.8 g/dL Urine Color Yellow Yellow Urine Clarity Turbid H Clear Urine pH 5.0 5.0-9.0 Urine Specific [place] 1.013 1.001-1.035 Urine Protein Trace H Negative Urine Ketones Trace Negative Urine Blood 1+ H Negative /uL Urine Nitrite Negative Negative Urine Bilirubin Negative Negative Urine Urobilinogen Normal Negative mg/dL Urine Leukocyte Esterase 2+ Negative /uL Urine RBC 9 0 - 3 /hpf Urine WBC Clumps Present None Seen /hpf Urine Microscopic WBC 493 H 0-3 /HPF Urine Squamous Epithelial Cells None seen <5 /hpf Urine Bacteria Mod H None Seen /hpf Urine Mucus Few None Seen Urine Glucose Normal Normal mg/dL Troponin I High Sensitivity 14 </=54 ng/L Test 01/13/25 17:24 Range/Units Lactic Acid Level 1.9 0.4-2.0 mmol/L Magnesium Level 2.1 1.6-2.6 mg/dL B-Type Natriuretic Peptide 34.78 0-100 pg/mL Microbiology Date/Time Source Procedure Growth Status 01/15/25 05:15 Voided Urine Urine Culture - Preliminary Resulted Assessment Altered mental status with episodic event at home Rule out grand mal seizure disorder Rule out partial complex seizure Chronic stroke with right-sided hemiparesis Bilateral severe carotid stenosis (CTA on 05/13/2022) Right hemiparesis Right big toe injury to rule out fracture Plan/Recommendation Monitoring Supportive treatment Telemetry EEG MRI head Aspirin 81 mg daily Plavix 75 mg daily Lipitor 40 mg daily For seizure breakthrough Up to chair Physical therapy This medical document was created using an electronic medical record system with [employer] dictation system. Although this document has been carefully reviewed, there may still be some phonetic and typographical errors. These areas are purely typographical due to imperfections of the software programs, and do not reflect any compromise in the patient's medical care. Plan discussed with: Other BASIM ARZATE MD Jan 16, 2025 22:26
[2025-01-16] MEDS: HYDROcodone-ACET 5/325MG TAB PO PRN (22:36)
[2025-01-16] MEDS ORDERED: LORazepam 2MG/ML-1ML VIAL IV PRN ×2 (23:00)
[2025-01-17] VITALS (8 sets, daily range): BP systolic 108–128; BP diastolic 65–70; PULSE 55–65; RESP 16–19; TEMP 97.5–98.3; O2SAT 95–100
--- NOTE | 2025-01-17 10:07 | DVH ---
EXAM: MRI BRAIN HEAD WO CONTRAST HISTORY: cva, sz COMPARISON: BRAIN HEAD WO CONTRAST on DOS: 05/13/22 TECHNIQUE: MRI was performed utilizing multiple appropriate imaging planes and pulse sequences. FINDINGS: SUPRATENTORIAL REGION: No evidence for acute ischemia or intracranial hemorrhage. Scattered ill-defi shanti FLAIR hyperintensities are noted within the bilateral periventricular region, gutierrez radiata and subcortical white matter. POSTERIOR FOSSA: Unremarkable. BRAINSTEM: Unremarkable. SELLAR/SUPRASELLAR REGION: Unremarkable. VENTRICLES, CISTERNS, SULCI: Prominent reflecting global volume loss. ORBITS: Unremarkable. PARANASAL SINUSES: Unremarkable. MASTOID AIR CELLS: Moderate left mastoid effusion. VASCULATURE: Unremarkable. BONES/ SOFT TISSUES: Unremarkable. OTHER: None. IMPRESSION: 1. No acute intracranial process identified. 2. Moderate global cortical atrophy and chronic microvascular ischemic changes.
--- NOTE | 2025-01-17 10:52 | DVH ---
Carotid Duplex Date: 01/17/2025 09:50 AM Clinical History: CVA Comparison: CAROTID DUPLX W COLOR DOP on DOS: 05/12/22 Technique: Duplex Doppler evaluation of the extracranial carotid and vertebral arteries including color Doppler and spectral/pulsed waveform analysis was performed. Findings: Velociites and ratios within normal limits. IMPRESSION: No hemodynamically significant stenosis noted in the right carotid system. No hemodynamically significant stenosis noted in the left carotid system. Reference: Radiology 2003; 229:[id number]
--- NOTE | 2025-01-17 11:14 | DVHPN2 ---
Subjective No new complaints Heart rate is better after the beta sienna was discontinued Changes from previous H/P or p: Changes Eyes: No Pain, No Vision change, No Conjunctivae inflammation, No Eyelid inflammation, No Other, No Redness ENT: No Ear pain, No Ear discharge, No Nose pain, No Nose discharge, No Nose congestion, No Mouth pain, No Mouth swelling, No Throat pain, No Throat swelling, No Other Cardiovascular: No Chest Pain, No Palpitations, No Orthopnea, No Paroxysmal Noc. Dyspnea, No Edema, No Lt Headedness, No Other Respiratory: Cough (With phlegm.); No Dry, No Shortness of breath, No SOB with excertion, No Wheezing, No Hemoptysis, No Pleuritic Pain, No Sputum, No Other Gastrointestinal: No Nausea, No Vomiting, No Abdominal Pain, No Diarrhea, No Constipation, No Melena, No Hematochezia, No Other Genitourinary: No Dysuria, No Frequency, No Incontinence, No Hematuria, No Retention, No Other Musculoskeletal: No other, No neck pain, No shoulder pain, No arm pain, No back pain, No hand pain, No leg pain, No foot pain Skin: No Rash, No Lesions, No Jaundice, No Bruising, No Other Objective Vitals Vital Signs Date Time Temp Pulse Resp B/P (MAP) Pulse Ox O2 Delivery O2 Flow Rate FiO2 01/17/25 10:15 129/74 01/17/25 09:00 98.2 63 17 99 98.2 01/16/25 20:00 Room Air* 0 21 Intake/Output Intake and Output 01/17/25 06:59 Intake Total 530 ml Output Total 680 ml Balance -150 ml Intake Oral 480 ml IV Total 50 ml Output Urine Total 680 ml General Appearance: Alert, Oriented X3, Cooperative, No acute distress Lungs: Clear to auscultation, Normal air movement Cardiovascular: Regular rate, Normal S1, Normal S2 Abdomen: Normal bowel sounds, Soft, No tenderness, No hepatospenomegaly Extremities: No edema Medications Current Medications Medications Dose Ordered Sig/Dorothy Route Start Time Stop Time Status Last Admin Dose Admin Aspirin 81 mg DAILY PO 01/14/25 10:00 01/17/25 10:09 81 MG Clopidogrel Bisulfate 75 mg DAILY PO 01/14/25 10:00 01/17/25 10:14 75 MG Atorvastatin Calcium 40 mg HS PO 01/13/25 22:00 01/16/25 22:37 40 MG Tamsulosin HCl 0.4 mg QPM PO 01/14/25 18:00 01/16/25 17:50 0.4 MG Hydralazine HCl 10 mg Q6HP PRN IV 01/13/25 22:00 Diagnostic Test (Pha) 1 strip ACHS 01/13/25 22:00 01/17/25 06:16 1 STRIP Insulin Human Regular ACHS SC 01/13/25 22:00 01/17/25 06:16 2 UNITS Dextrose 50 ml UD PRN IV 01/13/25 22:00 Acetaminophen/ Hydrocodone Bitart 1 tab Q4HP PRN PO 01/13/25 22:00 01/16/25 22:36 1 TAB Ondansetron HCl 4 mg Q4HP PRN IV 01/13/25 22:00 Docusate Sodium 100 mg BIDPRN PRN PO 01/13/25 22:00 Acetaminophen 650 mg Q6HP PRN PO 01/13/25 22:00 Amlodipine Besylate 5 mg DAILY PO 01/14/25 10:00 01/17/25 10:14 5 MG Nitroglycerin 0.4 mg Q5MINP PRN SL 01/13/25 23:30 Morphine Sulfate 2 mg Q30M PRN IV 01/13/25 23:30 Ceftriaxone Sodium 50 ml @ 100 mls/hr DAILY@09 IV 01/15/25 09:00 01/17/25 10:08 100 MLS/HR Benazepril HCl 20 mg BID PO 01/14/25 22:00 01/17/25 10:15 20 MG Lorazepam 1 mg ONCE PRN IV 01/16/25 23:00 Lorazepam 1 mg Q5MINP PRN IV 01/16/25 23:00 Temazepam 15 mg HSPRN PRN PO 01/17/25 01:45 Laboratory Results Laboratory Tests 01/14/25 06:38 Urinalysis Test 01/13/25 22:00 Urine Color Yellow (Yellow) Urine Clarity Turbid (Clear) H Urine pH 5.0 (5.0-9.0) Urine Specific [place] 1.013 (1.001-1.035) Urine Protein Trace (Negative) H Urine Ketones Trace (Negative) Urine Blood 1+ /uL (Negative) H Urine Nitrite Negative (Negative) Urine Bilirubin Negative (Negative) Urine Urobilinogen Normal mg/dL (Negative) Urine Leukocyte Esterase 2+ /uL (Negative) Urine RBC 9 /hpf (0 - 3) Urine WBC Clumps Present /hpf (None Seen) Urine Microscopic WBC 493 /HPF (0-3) H Urine Squamous Epithelial Cells None seen /hpf (<5) Urine Bacteria Mod /hpf (None Seen) H Urine Mucus Few (None Seen) Urine Glucose Normal mg/dL (Normal) Microbiology Microbiology Date/Time Source Procedure Growth Status 01/15/25 05:15 Voided Urine Urine Culture - Preliminary Resulted Assessment/Plan Assessment/Plan Acute metabolic encephalopathy due to UTI UTI 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 Dehydration Hypertension Coronary artery disease Type 2 diabetes Mixed hyperlipidemia Gout Generalized weakness Plan He received IV fluids overnight, discontinue now due to high blood pressure Start IV antibiotics Rocephin IV daily Resume the home medications including amlodipine and metoprolol and benazepril Continue aspirin and Plavix Physical therapy evaluation Swallow eval Pureed diet Lipitor Increase metoprolol to 25 mg twice a day home dose Monitor closely Discussed with the at the bedside Full code 01/15/25: Continue IV antibiotics Physical therapy Advance diet as tolerated 01/16/25: Bradycardia with pauses: Consult cardiology ALOC, rule out seizures: Consult neurology UTI: Rocephin Weakness: Physical therapy 01/17/2025: Bradycardia with pauses: Discontinued beta blockers Rule out seizures: MRI showed moderate global cortical atrophy and chronic microvascular ischemic changes, EEG is pending Bilateral carotid stenosis?: Ultrasound showed negative for stenosis Dementia Weakness Aspirin Lipitor Amlodipine Hold metoprolol Physical therapy Plan discussed with: Patient, Spouse, Other Date of Service: Jan 17, 2025 Billing Provider: PABLITO GUERRA MD Common Visit Codes: NOT BILLABLE PABLITO GUERRA MD Jan 17, 2025 11:14
--- NOTE | 2025-01-17 15:52 | DVHPN2 ---
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 I saw him on 05/12/2022 for stroke (possible MRI brain, bilateral carotid stenosis) I have seen and examined the patient, discussed with his nurse, the patient was doing fine, awake, oriented to person and place, no new complaints in the room, but she was not a good historian I noticed and she confirmed intermittent twitching in the left mouth corner for the one month, they have no brought this to his doctor attention yet For three months, the patient was has episodic event the started with hiccups, followed by diffuse sweating, urinary incontinence, spitting excessive amount of saliva, nonresponsiveness, family in the arms, eyes rolling back. This happens a few times monthly, and lasts for 2-8 hours. He was company amnesia about these events does not remember treatment for bilateral carotid stenosis, but follow up carotid Doppler was reported fine Urinalysis, 01/13/2025: WBC: Nine, urine WBC clumps: Present. Urine leukocyte esterase: 2+ CBC, 01/14/2025: Unremarkable BUN/CR, 01/13/2025: 26/1.5 2, 01/14/2025: 25/1.2 Liver function tests, 01/13/2025: Unremarkable Echocardiogram, 05/13/2022: Unremarkable Carotid Doppler, 01/17/2025: No hemodynamically significant stenosis noted in the right carotid system. No hemodynamically significant stenosis noted in the left carotid system. CT head, 01/13/2025: 1. NO ACUTE INTRACRANIAL HEMORRHAGE 2. NO TERRITORIAL ISCHEMIA. CTA head, neck, 05/13/2022: Right proximal internal carotid artery with greater than 90% stenosis of a calcified atherosclerotic disease. This is at the level of the carotid bulbs. Left proximal internal carotid artery with 70% stenosis from calcified atherosclerotic disease. This is at the level of the carotid bulb MRI head, 05/13/2022: There is acute left posterior internal capsule-gutierrez radiata nonhemorrhagic infarct. There is mild to moderate chronic microvascular ischemic disease of supratentorial white matter MR head, 01/17/2025: 1. No acute intracranial process identified. 2. Moderate global cortical atrophy and chronic microvascular ischemic changes vital signs Vital Sign Date Time Temp Pulse Resp B/P (MAP) Pulse Ox O2 Delivery O2 Flow Rate FiO2 01/17/25 13:00 97.5 55 16 112/70 (84) 98 97.5 01/17/25 08:10 Room Air* 0 21 Total Intake and Output 01/16/25 01/16/25 01/17/25 15:00 23:00 07:00 Intake Total 50 ml 230 ml 250 ml Output Total 430 ml 250 ml Balance 50 ml -200 ml 0 ml medications Current Medications Medications Dose Ordered Sig/Dorothy Route Start Time Stop Time Status Last Admin Dose Admin Aspirin 81 mg DAILY PO 01/14/25 10:00 01/17/25 10:09 81 MG Clopidogrel Bisulfate 75 mg DAILY PO 01/14/25 10:00 01/17/25 10:14 75 MG Atorvastatin Calcium 40 mg HS PO 01/13/25 22:00 01/16/25 22:37 40 MG Tamsulosin HCl 0.4 mg QPM PO 01/14/25 18:00 01/16/25 17:50 0.4 MG Hydralazine HCl 10 mg Q6HP PRN IV 01/13/25 22:00 Diagnostic Test (Pha) 1 strip ACHS 01/13/25 22:00 01/17/25 13:21 1 STRIP Insulin Human Regular ACHS SC 01/13/25 22:00 01/17/25 13:24 4 UNITS Dextrose 50 ml UD PRN IV 01/13/25 22:00 Acetaminophen/ Hydrocodone Bitart 1 tab Q4HP PRN PO 01/13/25 22:00 01/16/25 22:36 1 TAB Ondansetron HCl 4 mg Q4HP PRN IV 01/13/25 22:00 Docusate Sodium 100 mg BIDPRN PRN PO 01/13/25 22:00 Acetaminophen 650 mg Q6HP PRN PO 01/13/25 22:00 Amlodipine Besylate 5 mg DAILY PO 01/14/25 10:00 01/17/25 10:14 5 MG Nitroglycerin 0.4 mg Q5MINP PRN SL 01/13/25 23:30 Morphine Sulfate 2 mg Q30M PRN IV 01/13/25 23:30 Ceftriaxone Sodium 50 ml @ 100 mls/hr DAILY@09 IV 01/15/25 09:00 01/17/25 10:08 100 MLS/HR Benazepril HCl 20 mg BID PO 01/14/25 22:00 01/17/25 10:15 20 MG Lorazepam 1 mg ONCE PRN IV 01/16/25 23:00 Lorazepam 1 mg Q5MINP PRN IV 01/16/25 23:00 Temazepam 15 mg HSPRN PRN PO 01/17/25 01:45 objective General: the patient is well developed and nourished. No acute distress. No tenderness to palpation in the cervical spine MENTAL STATUS: Awake and alert. Oriented to person, place, not able to provide a history SPEECH, LANGUAGE, HIGHER CORTICAL FUNCTION: no aphasia or dysathria. CRANIAL NERVES: Pupils are equal, round and reactive. EOMs full and conjugate. No nystagmus. Facial sensation intact in all three divisions bilaterally. Mandibular strength intact. Facial muscles symmetrical and strength intact. SENSATION: Sensation to touch and pinprick is normal. MOTOR: Normal tone in the upper and lower extremity. Intrinsic hand muscle atrophy. No fasciculations. No abnormal movements or posturing. Muscle strength of the major groups in the arms is 5/5, legs: 4-5/5 REFLEXES: Deep tendon reflexes are symmetrical. No pathological reflexes. CEREBELLAR/COORDINATION: Finger to nose are normal bilaterally. GAIT/STATION: deferred laboratory and microbiology Laboratory Tests 01/14/25 06:38 Test 01/14/25 06:38 Range/Units Serum Glucose 121 H 74-106 mg/dL Problem List Altered mental status with episodic event at home Rule out grand mal seizure disorder Rule out partial complex seizure Chronic stroke with right-sided hemiparesis Bilateral severe carotid stenosis (CTA on 05/13/2022) Right hemiparesis Intermittent left mouth corner twitching, to rule out seizure disorder Episodic event with hiccups, sweating, urinary incontinence, shaking, nonresponsiveness, etiology unclear, needs to rule out seizure Assessment/Plan Monitoring Supportive treatment Telemetry EEG Aspirin 81 mg daily Plavix 75 mg daily Lipitor 40 mg daily Keppra 500 mg b.i.d. For seizure breakthrough Up to chair Physical therapy This medical document was created using an electronic medical record system with [employer] dictation system. Although this document has been carefully reviewed, there may still be some phonetic and typographical errors. These areas are purely typographical due to imperfections of the software programs, and do not reflect any compromise in the patient's medical care. Prognosis poor Dietary Evaluation Review Recommendations by RD: Increase Calorie Intake, Protein Supplementation Comments: 1) Initiate Glucerna tid d/t poor PO appetite. Encourage optimal PO intake. 2) Initiate Pro-Stat @ 30 mL qd. 3) Initiate vitamin C @ 500 mg bid for 7-10 days and zinc sulfate @ 220 mg qd for 7-10 days. 4) Consider staff to assist d/t advanced age and generalized weakness. 5) Collect HbA1c d/t elevated POC glucose - 243 mg/dL 6) Recommend TAKER OFF perform swallow study 7) Continue to monitor I&O, labs, and skin integrity Expected Outcomes/Goals: 1) appetite and labs to improve 2) wound to improve 3) wt to gradually increase 4) f/u in 2-3 days Plan discussed with: Spouse, Other Total Time (mins): 40 BASIM ARZATE MD Jan 17, 2025 15:52
[2025-01-17] MEDS ORDERED: LORazepam 2MG/ML-1ML VIAL IV PRN (17:15)
--- NOTE | 2025-01-17 20:32 | DVHEEG2 ---
Neurology EEG Procedural Note Procedural Note EXAM DATE: 01/17/2025 REFERRING DOCTOR: Dr. Arzate TECHNIQUE: Eighteen channels of EEG, 2 channels of EOG, and 1 channel of EKG were recorded using the [employer] 10/20 system. CLINICAL DATA: The patient was referred for an EEG evaluation for the evidence of seizure disorder. MEDICATIONS: See chart BACKGROUND ACTIVITY: While the patient was awake, the background activity consisted of well regulated 8-9 Hz rhythmic waveforms, symmetrically distributed over both posterior quadrants and was reactive to eye opening. ACTIVATION: Hyperventilation: Not done Photic Stimulation: No photic convulsive response Sleep: Stage I IMPRESSION: This is a normal EEG. No focal, lateralized, or epileptiform features are noted. If clinically indicated to rule out a seizure disorder, recommend repeat EEG with sleep deprivation. The EKG channel showed an irregular heart rate of 60/min. [place] [address] BASIM ARZATE MD Jan 17, 2025 20:32
[2025-01-17] MEDS: levETIRAcetam 500 MG TAB PO SCH (21:58)
[2025-01-17] MEDS: TEMAZEPAM 15 MG CAP PO PRN (22:39)
[2025-01-18] VITALS (9 sets, daily range): BP systolic 101–127; BP diastolic 62–75; PULSE 54–74; RESP 16–19; TEMP 97.1–98.7; O2SAT 97–99
[2025-01-18] MEDS: SODIUM CHLORIDE 0.9% 500 ML IV ONE (11:49)
--- NOTE | 2025-01-18 15:52 | DVHPN2 ---
Subjective Was very drowsy and unarousable this morning Blood pressure was low and therefore he was given a bolus of half a L normal saline which improved his blood pressure but his mental status remained very depressed He was given temazepam 15 mg at bedtime last night Later today he woke up slowly and started becoming more responsive and following commands Changes from previous H/P or p: Changes Eyes: No Pain, No Vision change, No Conjunctivae inflammation, No Eyelid inflammation, No Other, No Redness ENT: No Ear pain, No Ear discharge, No Nose pain, No Nose discharge, No Nose congestion, No Mouth pain, No Mouth swelling, No Throat pain, No Throat swelling, No Other Cardiovascular: No Chest Pain, No Palpitations, No Orthopnea, No Paroxysmal Noc. Dyspnea, No Edema, No Lt Headedness, No Other Respiratory: Cough (With phlegm.); No Dry, No Shortness of breath, No SOB with excertion, No Wheezing, No Hemoptysis, No Pleuritic Pain, No Sputum, No Other Gastrointestinal: No Nausea, No Vomiting, No Abdominal Pain, No Diarrhea, No Constipation, No Melena, No Hematochezia, No Other Genitourinary: No Dysuria, No Frequency, No Incontinence, No Hematuria, No Retention, No Other Musculoskeletal: No other, No neck pain, No shoulder pain, No arm pain, No back pain, No hand pain, No leg pain, No foot pain Skin: No Rash, No Lesions, No Jaundice, No Bruising, No Other Objective Vitals Vital Signs Date Time Temp Pulse Resp B/P (MAP) Pulse Ox O2 Delivery O2 Flow Rate FiO2 01/18/25 13:00 97.1 54 16 116/67 (83) 97 97.1 01/18/25 08:15 Room Air* 0 21 Intake/Output Intake and Output 01/18/25 07:00 Intake Total 1338 ml Output Total 100 ml Balance 1238 ml Intake Oral 1288 ml IV Total 50 ml Output Urine Total 100 ml # Bowel Movements 2 General Appearance: Alert, Oriented X3, Cooperative, No acute distress Lungs: Clear to auscultation, Normal air movement Cardiovascular: Regular rate, Normal S1, Normal S2 Abdomen: Normal bowel sounds, Soft, No tenderness, No hepatospenomegaly Extremities: No edema Medications Current Medications Medications Dose Ordered Sig/Dorothy Route Start Time Stop Time Status Last Admin Dose Admin Aspirin 81 mg DAILY PO 01/14/25 10:00 01/18/25 09:04 81 MG Clopidogrel Bisulfate 75 mg DAILY PO 01/14/25 10:00 01/18/25 09:01 75 MG Atorvastatin Calcium 40 mg HS PO 01/13/25 22:00 01/17/25 21:59 40 MG Tamsulosin HCl 0.4 mg QPM PO 01/14/25 18:00 01/17/25 17:33 0.4 MG Hydralazine HCl 10 mg Q6HP PRN IV 01/13/25 22:00 Diagnostic Test (Pha) 1 strip ACHS 01/13/25 22:00 01/18/25 11:49 1 STRIP Insulin Human Regular ACHS SC 01/13/25 22:00 01/18/25 06:07 2 UNITS Dextrose 50 ml UD PRN IV 01/13/25 22:00 Acetaminophen/ Hydrocodone Bitart 1 tab Q4HP PRN PO 01/13/25 22:00 01/16/25 22:36 1 TAB Ondansetron HCl 4 mg Q4HP PRN IV 01/13/25 22:00 Docusate Sodium 100 mg BIDPRN PRN PO 01/13/25 22:00 Acetaminophen 650 mg Q6HP PRN PO 01/13/25 22:00 Amlodipine Besylate 5 mg DAILY PO 01/14/25 10:00 01/18/25 09:05 5 MG Nitroglycerin 0.4 mg Q5MINP PRN SL 01/13/25 23:30 Morphine Sulfate 2 mg Q30M PRN IV 01/13/25 23:30 Ceftriaxone Sodium 50 ml @ 100 mls/hr DAILY@09 IV 01/15/25 09:00 01/18/25 08:51 100 MLS/HR Benazepril HCl 20 mg BID PO 01/14/25 22:00 01/18/25 09:04 20 MG Lorazepam 1 mg ONCE PRN IV 01/16/25 23:00 Temazepam 15 mg HSPRN PRN PO 01/17/25 01:45 01/17/25 22:39 15 MG Levetiracetam 500 mg BID PO 01/17/25 22:00 01/18/25 09:04 500 MG Lorazepam 1 mg Q5MINP PRN IV 01/17/25 17:15 Laboratory Results Laboratory Tests 01/14/25 06:38 Urinalysis Test 01/13/25 22:00 Urine Color Yellow (Yellow) Urine Clarity Turbid (Clear) H Urine pH 5.0 (5.0-9.0) Urine Specific [place] 1.013 (1.001-1.035) Urine Protein Trace (Negative) H Urine Ketones Trace (Negative) Urine Blood 1+ /uL (Negative) H Urine Nitrite Negative (Negative) Urine Bilirubin Negative (Negative) Urine Urobilinogen Normal mg/dL (Negative) Urine Leukocyte Esterase 2+ /uL (Negative) Urine RBC 9 /hpf (0 - 3) Urine WBC Clumps Present /hpf (None Seen) Urine Microscopic WBC 493 /HPF (0-3) H Urine Squamous Epithelial Cells None seen /hpf (<5) Urine Bacteria Mod /hpf (None Seen) H Urine Mucus Few (None Seen) Urine Glucose Normal mg/dL (Normal) Microbiology Microbiology Date/Time Source Procedure Growth Status 01/15/25 05:15 Voided Urine Urine Culture - Final Citrobacter freundii Enterococcus faecalis Complete Assessment/Plan Assessment/Plan Acute metabolic encephalopathy due to UTI UTI 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 Dehydration Hypertension Coronary artery disease Type 2 diabetes Mixed hyperlipidemia Gout Generalized weakness Plan He received IV fluids overnight, discontinue now due to high blood pressure Start IV antibiotics Rocephin IV daily Resume the home medications including amlodipine and metoprolol and benazepril Continue aspirin and Plavix Physical therapy evaluation Swallow eval Pureed diet Lipitor Increase metoprolol to 25 mg twice a day home dose Monitor closely Discussed with the at the bedside Full code 01/15/25: Continue IV antibiotics Physical therapy Advance diet as tolerated 01/16/25: Bradycardia with pauses: Consult cardiology ALOC, rule out seizures: Consult neurology UTI: Rocephin Weakness: Physical therapy 01/17/2025: Bradycardia with pauses: Discontinued beta blockers Rule out seizures: MRI showed moderate global cortical atrophy and chronic microvascular ischemic changes, EEG is pending Bilateral carotid stenosis?: Ultrasound showed negative for stenosis Dementia Weakness Aspirin Lipitor Amlodipine Hold metoprolol Physical therapy 01/18/2025: Get CT scan of the head no contrast to rule out recurrent CVA Metabolic encephalopathy: Discontinue Restoril Hypotension: Bolus was given half a Liter NS, continue at 75 mL an hour Hold CVA DNR Discussed with the family at the bedside, they do not want aggressive measures Plan discussed with: Spouse My Orders Orders - PABLITO GUERRA MD Procedure Category Date Status Time Code Status CODE 01/18/25 Transmitted 15:40 Date of Service: Jan 18, 2025 Billing Provider: PABLITO GUERRA MD Common Visit Codes: NOT BILLABLE PABLITO GUERRA MD Jan 18, 2025 15:52
--- NOTE | 2025-01-18 17:11 | DVH ---
EXAM: CT HEAD WITHOUT CONTRAST INDICATION: ALOC TECHNIQUE: CT of the head without intravenous contrast. Radiation Dose Information: CT Dose: CTDI volume is 54.63 mGy. Dose-length product is 1076.7 mGy*cm The dose indicators for CT are the volume Computed Tomography (CT) Dose Index (CTDIvol) and the Dose Length Product (DLP), and are measured in units of mGy and mGy-cm, respectively. These indicators are not patient dose, but values generated from the CT scanner acquisition factors. The report includes radiation exposure data for exposures received during this examination. COMPARISON: CT HEAD WITHOUT CONTRAST on DOS: 01/13/25, HEAD WITHOUT CONTRAST on DOS: 05/12/22 FINDINGS: There is no evidence of acute intracranial hemorrhage, extra-axial collection, mass effect, midline s hift, herniation or hydrocephalus. Cortical atrophy with periventricular microvascular angiopathy. The ventricles, sulci and cisterns are age appropriate. The alexander-white differentiation is intact. Patchy periventricular and subcortical white matter hypoattenuation is nonspecific but may be related to small vessel ischemic disease. The visualized paranasal sinuses and mastoid air cells are clear. The surrounding soft tissues and osseous structures are unremarkable. IMPRESSION: 1. No acute intracranial hemorrhage 2. Opacification left maxillary sinus. 3. No CT findings of territorial ischemia. 4. Cortical atrophy.
[2025-01-18] MEDS: SODIUM CHLORIDE 0.9% 1,000 ML IV SCH (17:17)
--- NOTE | 2025-01-18 22:50 | DVHPN2 ---
Progress Note - Dictate Date Seen: Jan 18, 2025 Medical Necessity Reason Pt with a Central, PICC or Fol: No Subjective Dr. Terry is a 79 years old right-handed gentleman with a history of hypertension, diabetes, dyslipidemia, coronary artery disease, gout, he came to the hospital on 01/13/25 with a chief company of progressive general weakness, unable to ambulate, poor appetite. I saw him on 05/12/2022 for stroke (possible MRI brain, bilateral carotid stenosis) I have seen and examined the patient, discussed with his nurse, the patient was doing fine, awake, oriented to person and place Earlier today, the patient was sleepy, and arouse with sternal rub, CT brain scan later was unremarkable Urinalysis, 01/13/2025: WBC: Nine, urine WBC clumps: Present. Urine leukocyte esterase: 2+ CBC, 01/14/2025: Unremarkable BUN/CR, 01/13/2025: 26/1.5 2, 01/14/2025: 25/1.2 Liver function tests, 01/13/2025: Unremarkable Echocardiogram, 05/13/2022: Unremarkable Carotid Doppler, 01/17/2025: No hemodynamically significant stenosis noted in the right carotid system. No hemodynamically significant stenosis noted in the left carotid system. CT head, 01/13/2025: 1. NO ACUTE INTRACRANIAL HEMORRHAGE 2. NO TERRITORIAL ISCHEMIA. CTA head, neck, 05/13/2022: Right proximal internal carotid artery with greater than 90% stenosis of a calcified atherosclerotic disease. This is at the level of the carotid bulbs. Left proximal internal carotid artery with 70% stenosis from calcified atherosclerotic disease. This is at the level of the carotid bulb MRI head, 05/13/2022: There is acute left posterior internal capsule-gutierrez radiata nonhemorrhagic infarct. There is mild to moderate chronic microvascular ischemic disease of supratentorial white matter MR head, 01/17/2025: 1. No acute intracranial process identified. 2. Moderate global cortical atrophy and chronic microvascular ischemic changes vital signs Vital Sign Date Time Temp Pulse Resp B/P (MAP) Pulse Ox O2 Delivery O2 Flow Rate FiO2 01/18/25 20:00 16 99 Room Air* 0 21 01/18/25 16:46 97.2 55 127/62 (83) 97.2 Total Intake and Output 01/17/25 01/17/25 01/18/25 15:00 23:00 07:00 Intake Total 50 ml 1038 ml 250 ml Output Total 100 ml Balance 50 ml 1038 ml 150 ml medications Current Medications Medications Dose Ordered Sig/Dorothy Route Start Time Stop Time Status Last Admin Dose Admin Aspirin 81 mg DAILY PO 01/14/25 10:00 01/18/25 09:04 81 MG Clopidogrel Bisulfate 75 mg DAILY PO 01/14/25 10:00 01/18/25 09:01 75 MG Atorvastatin Calcium 40 mg HS PO 01/13/25 22:00 01/17/25 21:59 40 MG Tamsulosin HCl 0.4 mg QPM PO 01/14/25 18:00 01/17/25 17:33 0.4 MG Hydralazine HCl 10 mg Q6HP PRN IV 01/13/25 22:00 Diagnostic Test (Pha) 1 strip ACHS 01/13/25 22:00 01/18/25 17:10 1 STRIP Insulin Human Regular ACHS SC 01/13/25 22:00 01/18/25 06:07 2 UNITS Dextrose 50 ml UD PRN IV 01/13/25 22:00 Acetaminophen/ Hydrocodone Bitart 1 tab Q4HP PRN PO 01/13/25 22:00 01/16/25 22:36 1 TAB Ondansetron HCl 4 mg Q4HP PRN IV 01/13/25 22:00 Docusate Sodium 100 mg BIDPRN PRN PO 01/13/25 22:00 Acetaminophen 650 mg Q6HP PRN PO 01/13/25 22:00 Amlodipine Besylate 5 mg DAILY PO 01/14/25 10:00 01/18/25 09:05 5 MG Nitroglycerin 0.4 mg Q5MINP PRN SL 01/13/25 23:30 Morphine Sulfate 2 mg Q30M PRN IV 01/13/25 23:30 Ceftriaxone Sodium 50 ml @ 100 mls/hr DAILY@09 IV 01/15/25 09:00 01/18/25 08:51 100 MLS/HR Benazepril HCl 20 mg BID PO 01/14/25 22:00 01/18/25 09:04 20 MG Lorazepam 1 mg ONCE PRN IV 01/16/25 23:00 Levetiracetam 500 mg BID PO 01/17/25 22:00 01/18/25 09:04 500 MG Lorazepam 1 mg Q5MINP PRN IV 01/17/25 17:15 Sodium Chloride 1,000 ml @ 75 mls/hr [id number] IV 01/18/25 16:00 01/18/25 17:17 75 MLS/HR objective General: the patient is well developed and nourished. No acute distress. No tenderness to palpation in the cervical spine MENTAL STATUS: Awake and alert. Oriented to person, place, not able to provide a history SPEECH, LANGUAGE, HIGHER CORTICAL FUNCTION: no aphasia or dysathria. CRANIAL NERVES: Pupils are equal, round and reactive. EOMs full and conjugate. No nystagmus. Facial sensation intact in all three divisions bilaterally. Mandibular strength intact. Facial muscles symmetrical and strength intact. SENSATION: Sensation to touch and pinprick is normal. MOTOR: Normal tone in the upper and lower extremity. Intrinsic hand muscle atrophy. No fasciculations. No abnormal movements or posturing. Muscle strength of the major groups in the arms is 5/5, legs: 4-5/5 REFLEXES: Deep tendon reflexes are symmetrical. No pathological reflexes. CEREBELLAR/COORDINATION: Finger to nose are normal bilaterally. GAIT/STATION: deferred laboratory and microbiology Laboratory Tests 01/14/25 06:38 Test 01/14/25 06:38 Range/Units Serum Glucose 121 H 74-106 mg/dL Problem List Altered mental status with episodic event at home Rule out grand mal seizure disorder Rule out partial complex seizure Chronic stroke with right-sided hemiparesis Bilateral severe carotid stenosis (CTA on 05/13/2022) Right hemiparesis Intermittent left mouth corner twitching, to rule out seizure disorder Episodic event with hiccups, sweating, urinary incontinence, shaking, nonresponsiveness, etiology unclear, needs to rule out seizure Assessment/Plan Monitoring Supportive treatment Telemetry EEG Aspirin 81 mg daily Plavix 75 mg daily Lipitor 40 mg daily Keppra 500 mg b.i.d. For seizure breakthrough Up to chair Physical therapy This medical document was created using an electronic medical record system with [employer] system. Although this document has been carefully reviewed, there may still be some phonetic and typographical errors. These areas are purely typographical due to imperfections of the software programs, and do not reflect any compromise in the patient's medical care. Prognosis poor Dietary Evaluation Review Recommendations by RD: Increase Calorie Intake, Protein Supplementation Comments: 1) Initiate Glucerna tid d/t poor PO appetite. Encourage optimal PO intake. 2) Initiate Pro-Stat @ 30 mL qd. 3) Initiate vitamin C @ 500 mg bid for 7-10 days and zinc sulfate @ 220 mg qd for 7-10 days. 4) Consider staff to assist d/t advanced age and generalized weakness. 5) Collect HbA1c d/t elevated POC glucose - 243 mg/dL 6) Recommend [employer]ER perform swallow study 7) Continue to monitor I&O, labs, and skin integrity Expected Outcomes/Goals: 1) appetite and labs to improve 2) wound to improve 3) wt to gradually increase 4) f/u in 2-3 days Plan discussed with: Other BASIM ARZATE MD Jan 18, 2025 22:50
[2025-01-19] VITALS (8 sets, daily range): BP systolic 106–169; BP diastolic 56–89; PULSE 62–78; RESP 16–18; TEMP 96.6–98.1; O2SAT 96–100
[2025-01-19 06:15] LABS: Basophils # (auto) 0 10 ^3/uL (0-0.2); Eosinophils # (auto) 0.1 10 ^3/uL (0-0.8); Hemoglobin 14.4 g/dL (13.5-17.5)
[2025-01-19 06:18] LABS: Basophils % (auto) 0.7 % (0.0-2.0); Eosinophils % (auto) 2.3 % (0.0-7.0); Hematocrit 40.6 % (41.0-53.0); Lymphocytes # (auto) 1.3 10 ^3/uL (0.4-5.4); Lymphocytes % (auto) 23.7 % (10.0-50.0); Mean Corpuscular Hemoglobin 34.3 pg (28.0-32.0); Mean Corpuscular Hgb Conc. 35.4 g/dL (32.0-36.0); Mean Corpuscular Volume 96.9 fL (80.0-100.0); Monocytes # (auto) 0.4 10 ^3/uL (0-1.3); Monocytes % (auto) 7.7 % (0.0-12.0); Neutrophils # (auto) 3.7 10 ^3/uL (1.6-8.6); Neutrophils % (auto) 65.6 % (37.0-80.0); Nucleated Red Blood Cells % 0.1 %; Platelet Count (auto) 198 10^3/uL (140-450); Red Blood Cells 4.19 10^6/uL (4.5-5.90); Red Cell Distribution Width 14.4 % (11.8-14.3); White Blood Cell 5.6 10^3/uL (4.4-10.8)
[2025-01-19 06:31] LABS: Alanine Aminotransferase 12 U/L (7-40); Alkaline Phosphatase 47 U/L (46-116); Anion Gap 8 (5-15); BUN/Creatinine Ratio 9.8 (10.0-20.0); Carbon Dioxide 25 mmol/L (20-31); Chloride 104 mmol/L (98-107); Magnesium 1.9 mg/dL (1.6-2.6); Potassium 3.7 mmol/L (3.5-5.1); Sodium 137 mmol/L (136-145)
[2025-01-19 06:32] LABS: Albumin 3.6 g/dL (3.2-4.8); Aspartate Aminotransferase 17 U/L (13-40)
[2025-01-19 06:33] LABS: Bilirubin, Total 0.4 mg/dL (0.2-1.0)
[2025-01-19 06:34] LABS: Blood Urea Nitrogen 8 mg/dL (9-23); Glucose 163 mg/dL (74-106); Total Protein 5.6 g/dL (5.7-8.2)
--- NOTE | 2025-01-19 10:56 | DVHPN2 ---
Subjective More awake now No complaints except for weakness He wants to go home Changes from previous H/P or p: Changes Eyes: No Pain, No Vision change, No Conjunctivae inflammation, No Eyelid inflammation, No Other, No Redness ENT: No Ear pain, No Ear discharge, No Nose pain, No Nose discharge, No Nose congestion, No Mouth pain, No Mouth swelling, No Throat pain, No Throat swelling, No Other Cardiovascular: No Chest Pain, No Palpitations, No Orthopnea, No Paroxysmal Noc. Dyspnea, No Edema, No Lt Headedness, No Other Respiratory: Cough (With phlegm.); No Dry, No Shortness of breath, No SOB with excertion, No Wheezing, No Hemoptysis, No Pleuritic Pain, No Sputum, No Other Gastrointestinal: No Nausea, No Vomiting, No Abdominal Pain, No Diarrhea, No Constipation, No Melena, No Hematochezia, No Other Genitourinary: No Dysuria, No Frequency, No Incontinence, No Hematuria, No Retention, No Other Musculoskeletal: No other, No neck pain, No shoulder pain, No arm pain, No back pain, No hand pain, No leg pain, No foot pain Skin: No Rash, No Lesions, No Jaundice, No Bruising, No Other Objective Vitals Vital Signs Date Time Temp Pulse Resp B/P (MAP) Pulse Ox O2 Delivery O2 Flow Rate FiO2 01/19/25 09:32 169/89 01/19/25 09:00 98.0 73 18 99 98.0 01/18/25 20:00 Room Air* 0 21 Intake/Output Intake and Output 01/19/25 07:00 Intake Total 1075 ml Output Total 525 ml Balance 550 ml Intake Oral 450 ml IV Total 625 ml Output Urine Total 525 ml # Voids 2 General Appearance: Alert, Oriented X3, Cooperative, No acute distress Lungs: Clear to auscultation, Normal air movement Cardiovascular: Regular rate, Normal S1, Normal S2 Abdomen: Normal bowel sounds, Soft, No tenderness, No hepatospenomegaly Extremities: No edema Medications Current Medications Medications Dose Ordered Sig/Dorothy Route Start Time Stop Time Status Last Admin Dose Admin Aspirin 81 mg DAILY PO 01/14/25 10:00 01/19/25 09:33 81 MG Clopidogrel Bisulfate 75 mg DAILY PO 01/14/25 10:00 01/19/25 09:33 75 MG Atorvastatin Calcium 40 mg HS PO 01/13/25 22:00 01/18/25 22:36 40 MG Tamsulosin HCl 0.4 mg QPM PO 01/14/25 18:00 01/17/25 17:33 0.4 MG Hydralazine HCl 10 mg Q6HP PRN IV 01/13/25 22:00 Diagnostic Test (Pha) 1 strip ACHS 01/13/25 22:00 01/19/25 06:10 1 STRIP Insulin Human Regular ACHS SC 01/13/25 22:00 01/19/25 06:15 3 UNITS Dextrose 50 ml UD PRN IV 01/13/25 22:00 Acetaminophen/ Hydrocodone Bitart 1 tab Q4HP PRN PO 01/13/25 22:00 01/16/25 22:36 1 TAB Ondansetron HCl 4 mg Q4HP PRN IV 01/13/25 22:00 Docusate Sodium 100 mg BIDPRN PRN PO 01/13/25 22:00 Acetaminophen 650 mg Q6HP PRN PO 01/13/25 22:00 Amlodipine Besylate 5 mg DAILY PO 01/14/25 10:00 01/19/25 09:32 5 MG Nitroglycerin 0.4 mg Q5MINP PRN SL 01/13/25 23:30 Morphine Sulfate 2 mg Q30M PRN IV 01/13/25 23:30 Ceftriaxone Sodium 50 ml @ 100 mls/hr DAILY@09 IV 01/15/25 09:00 01/19/25 09:31 100 MLS/HR Benazepril HCl 20 mg BID PO 01/14/25 22:00 01/19/25 09:32 20 MG Lorazepam 1 mg ONCE PRN IV 01/16/25 23:00 Levetiracetam 500 mg BID PO 01/17/25 22:00 01/19/25 09:33 500 MG Lorazepam 1 mg Q5MINP PRN IV 01/17/25 17:15 Sodium Chloride 1,000 ml @ 75 mls/hr [id number] IV 01/18/25 16:00 01/18/25 17:17 75 MLS/HR Laboratory Results Laboratory Tests 01/19/25 04:54 Chemistry Test 01/19/25 04:54 Albumin 3.6 g/dL (3.2-4.8) Calcium Level 9.0 mg/dL (8.7-10.4) Magnesium Level 1.9 mg/dL (1.6-2.6) Total Protein 5.6 g/dL (5.7-8.2) L LFT Test 01/19/25 04:54 Alanine Aminotransferase (ALT) 12 U/L (7-40) Alkaline Phosphatase 47 U/L (46-116) Aspartate Amino Transferase (AST) 17 U/L (13-40) Total Bilirubin 0.4 mg/dL (0.2-1.0) Urinalysis Test 01/13/25 22:00 Urine Color Yellow (Yellow) Urine Clarity Turbid (Clear) H Urine pH 5.0 (5.0-9.0) Urine Specific [place] 1.013 (1.001-1.035) Urine Protein Trace (Negative) H Urine Ketones Trace (Negative) Urine Blood 1+ /uL (Negative) H Urine Nitrite Negative (Negative) Urine Bilirubin Negative (Negative) Urine Urobilinogen Normal mg/dL (Negative) Urine Leukocyte Esterase 2+ /uL (Negative) Urine RBC 9 /hpf (0 - 3) Urine WBC Clumps Present /hpf (None Seen) Urine Microscopic WBC 493 /HPF (0-3) H Urine Squamous Epithelial Cells None seen /hpf (<5) Urine Bacteria Mod /hpf (None Seen) H Urine Mucus Few (None Seen) Urine Glucose Normal mg/dL (Normal) Microbiology Microbiology Date/Time Source Procedure Growth Status 01/15/25 05:15 Voided Urine Urine Culture - Final Citrobacter freundii Enterococcus faecalis Complete Assessment/Plan Assessment/Plan Acute metabolic encephalopathy due to UTI UTI 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 Dehydration Hypertension Coronary artery disease Type 2 diabetes Mixed hyperlipidemia Gout Generalized weakness Plan He received IV fluids overnight, discontinue now due to high blood pressure Start IV antibiotics Rocephin IV daily Resume the home medications including amlodipine and metoprolol and benazepril Continue aspirin and Plavix Physical therapy evaluation Swallow eval Pureed diet Lipitor Increase metoprolol to 25 mg twice a day home dose Monitor closely Discussed with the at the bedside Full code 01/15/25: Continue IV antibiotics Physical therapy Advance diet as tolerated 01/16/25: Bradycardia with pauses: Consult cardiology ALOC, rule out seizures: Consult neurology UTI: Rocephin Weakness: Physical therapy 01/17/2025: Bradycardia with pauses: Discontinued beta blockers Rule out seizures: MRI showed moderate global cortical atrophy and chronic microvascular ischemic changes, EEG is pending Bilateral carotid stenosis?: Ultrasound showed negative for stenosis Dementia Weakness Aspirin Lipitor Amlodipine Hold metoprolol Physical therapy 01/18/2025: Get CT scan of the head no contrast to rule out recurrent CVA Metabolic encephalopathy: Discontinue Restoril Hypotension: Bolus was given half a Liter NS, continue at 75 mL an hour Hold CVA DNR Discussed with the family at the bedside, they do not want aggressive measures January 19, 2025: Awaiting physical therapy to see the patient The patient is very weak, he wants to go home If he does okay with physical therapy then we can discharge him this afternoon CT scan of the head was repeated yesterday showed no acute stroke His sleepiness and unresponsiveness was probably as a result of the Restoril he received the previous night Plan discussed with: Patient, Spouse, Other My Orders Orders - PABLITO GUERRA MD Procedure Category Date Status Time Code Status CODE 01/18/25 Transmitted 15:[address] 01/18/25 Resulted 15:41 Sodium Chloride 0.9% PHA 01/18/25 In Process 16:00 Date of Service: Jan 19, 2025 Billing Provider: PABLITO GUERRA MD Common Visit Codes: NOT BILLABLE PABLITO GUERRA MD Jan 19, 2025 10:56
[2025-01-20] VITALS (8 sets, daily range): BP systolic 95–129; BP diastolic 50–72; PULSE 54–66; RESP 16–18; TEMP 96.9–98.4; O2SAT 96–98
[2025-01-20] MEDS: ACETAMINOPHEN 325 MG TAB PO PRN (09:31)
[2025-01-20] MEDS: DOCUSATE SOD 100 MG CAP PO PRN (13:13)
--- NOTE | 2025-01-20 19:11 | DVHPN2 ---
Subjective Patient denies any symptoms Reviewed: Care Plan, H&P, Labs Changes from previous H/P or p: No Changes Eyes: No Pain, No Vision change, No Conjunctivae inflammation, No Eyelid inflammation, No Other, No Redness ENT: No Ear pain, No Ear discharge, No Nose pain, No Nose discharge, No Nose congestion, No Mouth pain, No Mouth swelling, No Throat pain, No Throat swelling, No Other Cardiovascular: No Chest Pain, No Palpitations, No Orthopnea, No Paroxysmal Noc. Dyspnea, No Edema, No Lt Headedness, No Other Respiratory: Cough (With phlegm.); No Dry, No Shortness of breath, No SOB with excertion, No Wheezing, No Hemoptysis, No Pleuritic Pain, No Sputum, No Other Gastrointestinal: No Nausea, No Vomiting, No Abdominal Pain, No Diarrhea, No Constipation, No Melena, No Hematochezia, No Other Genitourinary: No Dysuria, No Frequency, No Incontinence, No Hematuria, No Retention, No Other Musculoskeletal: No other, No neck pain, No shoulder pain, No arm pain, No back pain, No hand pain, No leg pain, No foot pain Skin: No Rash, No Lesions, No Jaundice, No Bruising, No Other Objective Vitals Vital Signs Date Time Temp Pulse Resp B/P (MAP) Pulse Ox O2 Delivery O2 Flow Rate FiO2 01/20/25 17:06 96.9 54 16 113/64 (80) 98 96.9 01/20/25 08:15 Room Air* 0 21 Intake/Output Intake and Output 01/20/25 07:00 Intake Total 1875 ml Output Total 900 ml Balance 975 ml Intake Oral 825 ml IV Total 1050 ml Output Urine Total 900 ml # Voids 2 General Appearance: Alert, Oriented X3, Cooperative, No acute distress HEENT: PERRLA Lungs: Clear to auscultation, Normal air movement Cardiovascular: Regular rate, Normal S1, Normal S2 Abdomen: Normal bowel sounds, Soft, No tenderness, No hepatospenomegaly Extremities: No edema Skin: Dry, Intact Psych/Mental Status: Mental status NL, Mood NL Medications Current Medications Medications Dose Ordered Sig/Dorothy Route Start Time Stop Time Status Last Admin Dose Admin Aspirin 81 mg DAILY PO 01/14/25 10:00 01/20/25 11:44 81 MG Clopidogrel Bisulfate 75 mg DAILY PO 01/14/25 10:00 01/20/25 11:45 75 MG Atorvastatin Calcium 40 mg HS PO 01/13/25 22:00 01/19/25 21:53 40 MG Tamsulosin HCl 0.4 mg QPM PO 01/14/25 18:00 01/20/25 17:51 0.4 MG Hydralazine HCl 10 mg Q6HP PRN IV 01/13/25 22:00 Diagnostic Test (Pha) 1 strip ACHS 01/13/25 22:00 01/20/25 17:00 1 STRIP Insulin Human Regular ACHS SC 01/13/25 22:00 01/20/25 17:09 3 UNITS Dextrose 50 ml UD PRN IV 01/13/25 22:00 Acetaminophen/ Hydrocodone Bitart 1 tab Q4HP PRN PO 01/13/25 22:00 01/20/25 00:52 1 TAB Ondansetron HCl 4 mg Q4HP PRN IV 01/13/25 22:00 Docusate Sodium 100 mg BIDPRN PRN PO 01/13/25 22:00 01/20/25 13:13 100 MG Acetaminophen 650 mg Q6HP PRN PO 01/13/25 22:00 01/20/25 09:31 650 MG Amlodipine Besylate 5 mg DAILY PO 01/14/25 10:00 01/20/25 11:50 5 MG Nitroglycerin 0.4 mg Q5MINP PRN SL 01/13/25 23:30 Morphine Sulfate 2 mg Q30M PRN IV 01/13/25 23:30 Ceftriaxone Sodium 50 ml @ 100 mls/hr DAILY@09 IV 01/15/25 09:00 01/20/25 11:34 100 MLS/HR Benazepril HCl 20 mg BID PO 01/14/25 22:00 01/20/25 11:50 20 MG Lorazepam 1 mg ONCE PRN IV 01/16/25 23:00 Levetiracetam 500 mg BID PO 01/17/25 22:00 01/20/25 13:14 500 MG Lorazepam 1 mg Q5MINP PRN IV 01/17/25 17:15 Sodium Chloride 1,000 ml @ 75 mls/hr [id number] IV 01/18/25 16:00 01/20/25 06:29 75 MLS/HR Laboratory Results Laboratory Tests 01/19/25 04:54 Urinalysis Test 01/13/25 22:00 Urine Color Yellow (Yellow) Urine Clarity Turbid (Clear) H Urine pH 5.0 (5.0-9.0) Urine Specific [place] 1.013 (1.001-1.035) Urine Protein Trace (Negative) H Urine Ketones Trace (Negative) Urine Blood 1+ /uL (Negative) H Urine Nitrite Negative (Negative) Urine Bilirubin Negative (Negative) Urine Urobilinogen Normal mg/dL (Negative) Urine Leukocyte Esterase 2+ /uL (Negative) Urine RBC 9 /hpf (0 - 3) Urine WBC Clumps Present /hpf (None Seen) Urine Microscopic WBC 493 /HPF (0-3) H Urine Squamous Epithelial Cells None seen /hpf (<5) Urine Bacteria Mod /hpf (None Seen) H Urine Mucus Few (None Seen) Urine Glucose Normal mg/dL (Normal) Microbiology Microbiology Date/Time Source Procedure Growth Status 01/15/25 05:15 Voided Urine Urine Culture - Final Citrobacter freundii Enterococcus faecalis Complete Labs and/or images reviewed: Labs reviewed by me, Image(s) reviewed by me Assessment/Plan Assessment/Plan Impression: -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 Continue. Diet -regular insulin sliding scale -hold beta-blockers, calcium channel blockers Total time spent with patient discussing and formulating plan of care: 35 minutes. This medical document was created using an electronic medical record system with [employer] dictation system. Although this document has been carefully reviewed, there may still be some phonetic and typographical errors. These areas are purely typographical due to imperfections of the software programs, and do not reflect any compromise in the patient's medical care. Plan discussed with: Patient, Other (RN) My Orders Orders - CURTIS SUAZO NP Procedure Category Date Status Time Linezolid 600mg/300ml PHA 01/20/25 Logged (Zyvox) 22:00 Date of Service: Jan 20, 2025 Billing Provider: CURTIS SUAZO NP Common Visit Codes: [id number] INP/OBS CARE(HIGH) CURTIS SUAZO [employer]IOR [employer] SERVICES DEVELOPER Jan 20, 2025 19:11
[2025-01-20] MEDS: LINEZOLID 600MG/300ML 300 ML IV SCH (22:03)
[2025-01-21] VITALS (8 sets, daily range): BP systolic 113–150; BP diastolic 59–98; PULSE 51–67; RESP 16–20; TEMP 97.7–98.6; O2SAT 97–100
--- NOTE | 2025-01-21 12:31 | DVHPN2 ---
Subjective Patient denies any symptoms Reviewed: Care Plan, H&P, Labs Changes from previous H/P or p: No Changes Eyes: No Pain, No Vision change, No Conjunctivae inflammation, No Eyelid inflammation, No Other, No Redness ENT: No Ear pain, No Ear discharge, No Nose pain, No Nose discharge, No Nose congestion, No Mouth pain, No Mouth swelling, No Throat pain, No Throat swelling, No Other Cardiovascular: No Chest Pain, No Palpitations, No Orthopnea, No Paroxysmal Noc. Dyspnea, No Edema, No Lt Headedness, No Other Respiratory: Cough (With phlegm.); No Dry, No Shortness of breath, No SOB with excertion, No Wheezing, No Hemoptysis, No Pleuritic Pain, No Sputum, No Other Gastrointestinal: No Nausea, No Vomiting, No Abdominal Pain, No Diarrhea, No Constipation, No Melena, No Hematochezia, No Other Genitourinary: No Dysuria, No Frequency, No Incontinence, No Hematuria, No Retention, No Other Musculoskeletal: No other, No neck pain, No shoulder pain, No arm pain, No back pain, No hand pain, No leg pain, No foot pain Skin: No Rash, No Lesions, No Jaundice, No Bruising, No Other Objective Vitals Vital Signs Date Time Temp Pulse Resp B/P (MAP) Pulse Ox O2 Delivery O2 Flow Rate FiO2 01/21/25 10:09 113/64 01/21/25 09:01 98.1 64 20 98 98.1 01/21/25 08:00 Room Air* 0 21 Intake/Output Intake and Output 01/21/25 07:00 Intake Total 2100 ml Output Total 1851 ml Balance 249 ml Intake Oral 800 ml IV Total 1300 ml Output Urine Total 1850 ml Stool Total 1 ml General Appearance: Alert, Oriented X3, Cooperative, No acute distress HEENT: PERRLA Lungs: Clear to auscultation, Normal air movement Cardiovascular: Regular rate, Normal S1, Normal S2 Abdomen: Normal bowel sounds, Soft, No tenderness, No hepatospenomegaly Extremities: No edema Skin: Dry, Intact Psych/Mental Status: Mental status NL, Mood NL Medications Current Medications Medications Dose Ordered Sig/Dorothy Route Start Time Stop Time Status Last Admin Dose Admin Aspirin 81 mg DAILY PO 01/14/25 10:00 01/21/25 10:09 81 MG Clopidogrel Bisulfate 75 mg DAILY PO 01/14/25 10:00 01/21/25 10:10 75 MG Atorvastatin Calcium 40 mg HS PO 01/13/25 22:00 01/20/25 22:01 40 MG Tamsulosin HCl 0.4 mg QPM PO 01/14/25 18:00 01/20/25 17:51 0.4 MG Hydralazine HCl 10 mg Q6HP PRN IV 01/13/25 22:00 Diagnostic Test (Pha) 1 strip ACHS 01/13/25 22:00 01/21/25 11:31 1 STRIP Insulin Human Regular ACHS SC 01/13/25 22:00 01/21/25 11:41 6 UNITS Dextrose 50 ml UD PRN IV 01/13/25 22:00 Acetaminophen/ Hydrocodone Bitart 1 tab Q4HP PRN PO 01/13/25 22:00 01/20/25 00:52 1 TAB Ondansetron HCl 4 mg Q4HP PRN IV 01/13/25 22:00 Docusate Sodium 100 mg BIDPRN PRN PO 01/13/25 22:00 01/20/25 13:13 100 MG Acetaminophen 650 mg Q6HP PRN PO 01/13/25 22:00 01/21/25 10:06 650 MG Amlodipine Besylate 5 mg DAILY PO 01/14/25 10:00 01/20/25 11:50 5 MG Nitroglycerin 0.4 mg Q5MINP PRN SL 01/13/25 23:30 Morphine Sulfate 2 mg Q30M PRN IV 01/13/25 23:30 Ceftriaxone Sodium 50 ml @ 100 mls/hr DAILY@09 IV 01/15/25 09:00 01/21/25 10:05 100 MLS/HR Benazepril HCl 20 mg BID PO 01/14/25 22:00 01/21/25 10:09 20 MG Lorazepam 1 mg ONCE PRN IV 01/16/25 23:00 Levetiracetam 500 mg BID PO 01/17/25 22:00 01/21/25 10:05 500 MG Lorazepam 1 mg Q5MINP PRN IV 01/17/25 17:15 Sodium Chloride 1,000 ml @ 75 mls/hr [id number] IV 01/18/25 16:00 01/21/25 02:50 75 MLS/HR Linezolid 300 ml @ 150 mls/hr Q12HR IV 01/20/25 22:00 01/21/25 11:31 150 MLS/HR Laboratory Results Laboratory Tests 01/19/25 04:54 Urinalysis Test 01/13/25 22:00 Urine Color Yellow (Yellow) Urine Clarity Turbid (Clear) H Urine pH 5.0 (5.0-9.0) Urine Specific [place] 1.013 (1.001-1.035) Urine Protein Trace (Negative) H Urine Ketones Trace (Negative) Urine Blood 1+ /uL (Negative) H Urine Nitrite Negative (Negative) Urine Bilirubin Negative (Negative) Urine Urobilinogen Normal mg/dL (Negative) Urine Leukocyte Esterase 2+ /uL (Negative) Urine RBC 9 /hpf (0 - 3) Urine WBC Clumps Present /hpf (None Seen) Urine Microscopic WBC 493 /HPF (0-3) H Urine Squamous Epithelial Cells None seen /hpf (<5) Urine Bacteria Mod /hpf (None Seen) H Urine Mucus Few (None Seen) Urine Glucose Normal mg/dL (Normal) Microbiology Microbiology Date/Time Source Procedure Growth Status 01/15/25 05:15 Voided Urine Urine Culture - Final Citrobacter freundii Enterococcus faecalis Complete Labs and/or images reviewed: Labs reviewed by me, Image(s) reviewed by me Assessment/Plan Assessment/Plan Impression: -complicated cystitis secondary to Citrobacter freundii and Enterococcus faecalis -metabolic encephalopathy secondary to UTI -history of dementia -bradycardia -diabetes mellitus -history of CVA -gout Plan: Events: No events overnight. -Antibiotic: Rocephin, Zyvox -swallow evaluation reviewed. Continue. Diet -regular insulin sliding scale -hold beta-blockers, calcium channel blockers -discussion made with the patient's son who was bedside. All questions answered. -PT evaluation appreciate Total time spent with patient discussing and formulating plan of care: 35 minutes. This medical document was created using an electronic medical record system with [employer] system. Although this document has been carefully reviewed, there may still be some phonetic and typographical errors. These areas are purely typographical due to imperfections of the software programs, and do not reflect any compromise in the patient's medical care. Plan discussed with: Patient, Other (RN) My Orders Orders - [facility] Procedure Category Date Status Time Linezolid 600mg/300ml PHA 01/20/25 In Process (Zyvox) 22:00 Date of Service: Jan 21, 2025 Billing Provider: CURTIS SUAZO NP Common Visit Codes: [id number] INP/OBS CARE(HIGH) CURTIS SUAZO NP Jan 21, 2025 12:31
[2025-01-22] VITALS (7 sets, daily range): BP systolic 112–149; BP diastolic 58–77; PULSE 53–65; RESP 16–19; TEMP 97.4–97.7; O2SAT 97–99
--- NOTE | 2025-01-22 14:01 | DVHPN2 ---
Subjective Patient denies any symptoms Reviewed: Care Plan, H&P, Labs Changes from previous H/P or p: No Changes Eyes: No Pain, No Vision change, No Conjunctivae inflammation, No Eyelid inflammation, No Other, No Redness ENT: No Ear pain, No Ear discharge, No Nose pain, No Nose discharge, No Nose congestion, No Mouth pain, No Mouth swelling, No Throat pain, No Throat swelling, No Other Cardiovascular: No Chest Pain, No Palpitations, No Orthopnea, No Paroxysmal Noc. Dyspnea, No Edema, No Lt Headedness, No Other Respiratory: Cough (With phlegm.); No Dry, No Shortness of breath, No SOB with excertion, No Wheezing, No Hemoptysis, No Pleuritic Pain, No Sputum, No Other Gastrointestinal: No Nausea, No Vomiting, No Abdominal Pain, No Diarrhea, No Constipation, No Melena, No Hematochezia, No Other Genitourinary: No Dysuria, No Frequency, No Incontinence, No Hematuria, No Retention, No Other Musculoskeletal: No other, No neck pain, No shoulder pain, No arm pain, No back pain, No hand pain, No leg pain, No foot pain Skin: No Rash, No Lesions, No Jaundice, No Bruising, No Other Objective Vitals Vital Signs Date Time Temp Pulse Resp B/P (MAP) Pulse Ox O2 Delivery O2 Flow Rate FiO2 01/22/25 13:29 97.5 56 18 113/64 (80) 98 97.5 01/21/25 20:00 Room Air* 0 21 Intake/Output Intake and Output 01/22/25 07:00 Intake Total 2550 ml Output Total 700 ml Balance 1850 ml Intake Oral 900 ml IV Total 1650 ml Output Urine Total 700 ml # Voids 4 General Appearance: Alert, Oriented X3, Cooperative, No acute distress HEENT: PERRLA Lungs: Clear to auscultation, Normal air movement Cardiovascular: Regular rate, Normal S1, Normal S2 Abdomen: Normal bowel sounds, Soft, No tenderness, No hepatospenomegaly Extremities: No edema Skin: Dry, Intact Psych/Mental Status: Mental status NL, Mood NL Medications Current Medications Medications Dose Ordered Sig/Dorothy Route Start Time Stop Time Status Last Admin Dose Admin Aspirin 81 mg DAILY PO 01/14/25 10:00 01/22/25 10:25 81 MG Clopidogrel Bisulfate 75 mg DAILY PO 01/14/25 10:00 01/22/25 10:26 75 MG Atorvastatin Calcium 40 mg HS PO 01/13/25 22:00 01/21/25 22:18 40 MG Tamsulosin HCl 0.4 mg QPM PO 01/14/25 18:00 01/21/25 17:40 0.4 MG Hydralazine HCl 10 mg Q6HP PRN IV 01/13/25 22:00 Diagnostic Test (Pha) 1 strip ACHS 01/13/25 22:00 01/22/25 11:21 1 STRIP Insulin Human Regular ACHS SC 01/13/25 22:00 01/22/25 12:22 3 UNITS Dextrose 50 ml UD PRN IV 01/13/25 22:00 Acetaminophen/ Hydrocodone Bitart 1 tab Q4HP PRN PO 01/13/25 22:00 01/20/25 00:52 1 TAB Ondansetron HCl 4 mg Q4HP PRN IV 01/13/25 22:00 Docusate Sodium 100 mg BIDPRN PRN PO 01/13/25 22:00 01/20/25 13:13 100 MG Acetaminophen 650 mg Q6HP PRN PO 01/13/25 22:00 01/21/25 10:06 650 MG Amlodipine Besylate 5 mg DAILY PO 01/14/25 10:00 01/20/25 11:50 5 MG Nitroglycerin 0.4 mg Q5MINP PRN SL 01/13/25 23:30 Morphine Sulfate 2 mg Q30M PRN IV 01/13/25 23:30 Ceftriaxone Sodium 50 ml @ 100 mls/hr DAILY@09 IV 01/15/25 09:00 01/22/25 10:24 100 MLS/HR Benazepril HCl 20 mg BID PO 01/14/25 22:00 01/22/25 10:25 20 MG Lorazepam 1 mg ONCE PRN IV 01/16/25 23:00 Levetiracetam 500 mg BID PO 01/17/25 22:00 01/22/25 10:25 500 MG Lorazepam 1 mg Q5MINP PRN IV 01/17/25 17:15 Sodium Chloride 1,000 ml @ 75 mls/hr [id number] IV 01/18/25 16:00 01/22/25 13:51 75 MLS/HR Linezolid 300 ml @ 150 mls/hr Q12HR IV 01/20/25 22:00 01/22/25 11:21 150 MLS/HR Laboratory Results Laboratory Tests 01/19/25 04:54 Urinalysis Test 01/13/25 22:00 Urine Color Yellow (Yellow) Urine Clarity Turbid (Clear) H Urine pH 5.0 (5.0-9.0) Urine Specific [place] 1.013 (1.001-1.035) Urine Protein Trace (Negative) H Urine Ketones Trace (Negative) Urine Blood 1+ /uL (Negative) H Urine Nitrite Negative (Negative) Urine Bilirubin Negative (Negative) Urine Urobilinogen Normal mg/dL (Negative) Urine Leukocyte Esterase 2+ /uL (Negative) Urine RBC 9 /hpf (0 - 3) Urine WBC Clumps Present /hpf (None Seen) Urine Microscopic WBC 493 /HPF (0-3) H Urine Squamous Epithelial Cells None seen /hpf (<5) Urine Bacteria Mod /hpf (None Seen) H Urine Mucus Few (None Seen) Urine Glucose Normal mg/dL (Normal) Microbiology Microbiology Date/Time Source Procedure Growth Status 01/15/25 05:15 Voided Urine Urine Culture - Final Citrobacter freundii Enterococcus faecalis Complete Labs and/or images reviewed: Labs reviewed by me, Image(s) reviewed by me Assessment/Plan Assessment/Plan Impression: -complicated cystitis secondary to Citrobacter freundii and Enterococcus faecalis -metabolic encephalopathy secondary to UTI -history of dementia -bradycardia -diabetes mellitus -history of CVA -gout Plan: Events: No events overnight. -Antibiotic: Rocephin, Zyvox -swallow evaluation reviewed. Continue. Diet -regular insulin sliding scale -hold beta-blockers, calcium channel blockers -discussion made with the patient's son who was bedside. All questions answered. -PT evaluation appreciate -Reassess for discharge in am Total time spent with patient discussing and formulating plan of care: 35 minutes. This medical document was created using an electronic medical record system with [employer] system. Although this document has been carefully reviewed, there may still be some phonetic and typographical errors. These areas are purely typographical due to imperfections of the software programs, and do not reflect any compromise in the patient's medical care. Plan discussed with: Patient, Other (RN) My Orders Orders - CURTIS SUAZO [facility] Procedure Category Date Status Time Cleanse Wound With VALENTIN 01/21/25 In Process Mild Soap A 17:16 Date of Service: Jan 23, 2025 Billing Provider: CURTIS SUAZO NP Common Visit Codes: [id number] INP/OBS CARE(HIGH) CURTIS SUAZO NP Jan 22, 2025 14:01
[2025-01-23] VITALS (8 sets, daily range): BP systolic 115–142; BP diastolic 61–82; PULSE 52–66; RESP 15–18; TEMP 97.6–98.6; O2SAT 98–100
--- NOTE | 2025-01-23 10:02 | DVHPN2 ---
Subjective No new complaints at the bedside reports he has been quiet today, he did not have his breakfast yet He is awake however and was able to take his pills with no difficulty He also had some physical therapy yesterday He is able to use the urinal Reviewed: Care Plan, H&P, Labs Changes from previous H/P or p: Changes Eyes: No Pain, No Vision change, No Conjunctivae inflammation, No Eyelid inflammation, No Other, No Redness ENT: No Ear pain, No Ear discharge, No Nose pain, No Nose discharge, No Nose congestion, No Mouth pain, No Mouth swelling, No Throat pain, No Throat swelling, No Other Cardiovascular: No Chest Pain, No Palpitations, No Orthopnea, No Paroxysmal Noc. Dyspnea, No Edema, No Lt Headedness, No Other Respiratory: Cough (With phlegm.); No Dry, No Shortness of breath, No SOB with excertion, No Wheezing, No Hemoptysis, No Pleuritic Pain, No Sputum, No Other Gastrointestinal: No Nausea, No Vomiting, No Abdominal Pain, No Diarrhea, No Constipation, No Melena, No Hematochezia, No Other Genitourinary: No Dysuria, No Frequency, No Incontinence, No Hematuria, No Retention, No Other Musculoskeletal: No other, No neck pain, No shoulder pain, No arm pain, No back pain, No hand pain, No leg pain, No foot pain Skin: No Rash, No Lesions, No Jaundice, No Bruising, No Other Objective Vitals Vital Signs Date Time Temp Pulse Resp B/P (MAP) Pulse Ox O2 Delivery O2 Flow Rate FiO2 01/23/25 09:16 125/82 01/23/25 09:00 97.9 66 16 100 97.9 01/22/25 20:00 Room Air* 0 21 Intake/Output Intake and Output 01/23/25 07:00 Intake Total 1170 ml Output Total 1650 ml Balance -480 ml Intake Oral 520 ml IV Total 650 ml Output Urine Total 1650 ml # Bowel Movements 1 General Appearance: Alert, Oriented X3, Cooperative, No acute distress HEENT: PERRLA Lungs: Clear to auscultation, Normal air movement Cardiovascular: Regular rate, Normal S1, Normal S2 Abdomen: Normal bowel sounds, Soft, No tenderness, No hepatospenomegaly Extremities: No edema Skin: Dry, Intact Psych/Mental Status: Mental status NL, Mood NL Medications Current Medications Medications Dose Ordered Sig/Dorothy Route Start Time Stop Time Status Last Admin Dose Admin Aspirin 81 mg DAILY PO 01/14/25 10:00 01/23/25 09:17 81 MG Clopidogrel Bisulfate 75 mg DAILY PO 01/14/25 10:00 01/23/25 09:17 75 MG Atorvastatin Calcium 40 mg HS PO 01/13/25 22:00 01/22/25 21:14 40 MG Tamsulosin HCl 0.4 mg QPM PO 01/14/25 18:00 01/21/25 17:40 0.4 MG Hydralazine HCl 10 mg Q6HP PRN IV 01/13/25 22:00 Diagnostic Test (Pha) 1 strip ACHS 01/13/25 22:00 01/23/25 06:07 1 STRIP Insulin Human Regular ACHS SC 01/13/25 22:00 01/23/25 06:07 2 UNITS Dextrose 50 ml UD PRN IV 01/13/25 22:00 Ondansetron HCl 4 mg Q4HP PRN IV 01/13/25 22:00 Docusate Sodium 100 mg BIDPRN PRN PO 01/13/25 22:00 01/20/25 13:13 100 MG Acetaminophen 650 mg Q6HP PRN PO 01/13/25 22:00 01/21/25 10:06 650 MG Amlodipine Besylate 5 mg DAILY PO 01/14/25 10:00 01/23/25 09:15 5 MG Nitroglycerin 0.4 mg Q5MINP PRN SL 01/13/25 23:30 Ceftriaxone Sodium 50 ml @ 100 mls/hr DAILY@09 IV 01/15/25 09:00 01/23/25 09:14 100 MLS/HR Benazepril HCl 20 mg BID PO 01/14/25 22:00 01/23/25 09:16 20 MG Lorazepam 1 mg ONCE PRN IV 01/16/25 23:00 Levetiracetam 500 mg BID PO 01/17/25 22:00 01/23/25 09:17 500 MG Lorazepam 1 mg Q5MINP PRN IV 01/17/25 17:15 Sodium Chloride 1,000 ml @ 75 mls/hr [id number] IV 01/18/25 16:00 01/23/25 02:40 75 MLS/HR Linezolid 300 ml @ 150 mls/hr Q12HR IV 01/20/25 22:00 01/23/25 09:17 150 MLS/HR Laboratory Results Laboratory Tests 01/19/25 04:54 Urinalysis Test 01/13/25 22:00 Urine Color Yellow (Yellow) Urine Clarity Turbid (Clear) H Urine pH 5.0 (5.0-9.0) Urine Specific [place] 1.013 (1.001-1.035) Urine Protein Trace (Negative) H Urine Ketones Trace (Negative) Urine Blood 1+ /uL (Negative) H Urine Nitrite Negative (Negative) Urine Bilirubin Negative (Negative) Urine Urobilinogen Normal mg/dL (Negative) Urine Leukocyte Esterase 2+ /uL (Negative) Urine RBC 9 /hpf (0 - 3) Urine WBC Clumps Present /hpf (None Seen) Urine Microscopic WBC 493 /HPF (0-3) H Urine Squamous Epithelial Cells None seen /hpf (<5) Urine Bacteria Mod /hpf (None Seen) H Urine Mucus Few (None Seen) Urine Glucose Normal mg/dL (Normal) Microbiology Microbiology Date/Time Source Procedure Growth Status 01/15/25 05:15 Voided Urine Urine Culture - Final Citrobacter freundii Enterococcus faecalis Complete Assessment/Plan Assessment/Plan Acute metabolic encephalopathy due to UTI UTI w Citrobacter freundii and Enterococcus faecalis 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 Dehydration, resolved Hypertension Coronary artery disease Type 2 diabetes Mixed hyperlipidemia Gout Generalized weakness Vascular dementia Bradycardia due to medications Plan IV antibiotics Rocephin and Zyvox The patient received 9 doses of Rocephin, we will discontinue He also received 3 days of Zyvox, discontinue Give Macrobid which should cover both organisms Lengthy discussion was done with the at the bedside, explained the poor prognosis, she would like to get more help at home, we recommended hospice, she accepted Hospice consult Plan discussed with: Patient, Spouse Date of Service: Jan 23, 2025 Billing Provider: PABLITO GUERRA MD Common Visit Codes: NOT BILLABLE PABLITO GUERRA MD Jan 23, 2025 10:02
--- NOTE | 2025-01-24 | DVHPN2 ---
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 I saw him on 05/12/2022 for stroke (possible MRI brain, bilateral carotid stenosis) I have seen and examined the patient, discussed with his nurse, the patient was doing fine, awake, oriented to person and place. His voice is weak and soft Appreciated social work input Urinalysis, 01/13/2025: WBC: Nine, urine WBC clumps: Present. Urine leukocyte esterase: 2+ CBC, 01/14/2025: Unremarkable BUN/CR, 01/13/2025: 26/1.5 2, 01/14/2025: 25/1.2 Liver function tests, 01/13/2025: Unremarkable Echocardiogram, 05/13/2022: Unremarkable Carotid Doppler, 01/17/2025: No hemodynamically significant stenosis noted in the right carotid system. No hemodynamically significant stenosis noted in the left carotid system. CT head, 01/13/2025: 1. NO ACUTE INTRACRANIAL HEMORRHAGE 2. NO TERRITORIAL ISCHEMIA. CTA head, neck, 05/13/2022: Right proximal internal carotid artery with greater than 90% stenosis of a calcified atherosclerotic disease. This is at the level of the carotid bulbs. Left proximal internal carotid artery with 70% stenosis from calcified atherosclerotic disease. This is at the level of the carotid bulb MRI head, 05/13/2022: There is acute left posterior internal capsule-gutierrez radiata nonhemorrhagic infarct. There is mild to moderate chronic microvascular ischemic disease of supratentorial white matter MR head, 01/17/2025: 1. No acute intracranial process identified. 2. Moderate global cortical atrophy and chronic microvascular ischemic changes vital signs Vital Sign Date Time Temp Pulse Resp B/P (MAP) Pulse Ox O2 Delivery O2 Flow Rate FiO2 01/23/25 23:45 133/74 01/23/25 21:00 98.4 63 16 99 98.4 01/23/25 08:00 Room Air* 0 21 Total Intake and Output 4/04/1201/22/25 01/23/25 15:00 23:00 07:00 Intake Total 350 ml 120 ml 700 ml Output Total 500 ml 850 ml 300 ml Balance -150 ml -730 ml 400 ml medications Current Medications Medications Dose Ordered Sig/Dorothy Route Start Time Stop Time Status Last Admin Dose Admin Aspirin 81 mg DAILY PO 01/14/25 10:00 01/23/25 09:17 Clopidogrel Bisulfate 75 mg DAILY PO 01/14/25 10:00 01/23/25 09:17 Atorvastatin Calcium 40 mg HS PO 01/13/25 22:00 01/23/25 23:44 Tamsulosin HCl 0.4 mg QPM PO 01/14/25 18:00 01/23/25 18:38 Hydralazine HCl 10 mg Q6HP PRN IV 01/13/25 22:00 Diagnostic Test (Pha) 1 strip ACHS 01/13/25 22:00 01/23/25 23:44 Insulin Human Regular ACHS SC 01/13/25 22:00 01/23/25 23:59 Dextrose 50 ml UD PRN IV 01/13/25 22:00 Ondansetron HCl 4 mg Q4HP PRN IV 01/13/25 22:00 Docusate Sodium 100 mg BIDPRN PRN PO 01/13/25 22:00 01/20/25 13:13 Acetaminophen 650 mg Q6HP PRN PO 01/13/25 22:00 01/23/25 21:17 Amlodipine Besylate 5 mg DAILY PO 01/14/25 10:00 01/23/25 09:15 Nitroglycerin 0.4 mg Q5MINP PRN SL 01/13/25 23:30 Benazepril HCl 20 mg BID PO 01/14/25 22:00 01/23/25 23:45 Lorazepam 1 mg ONCE PRN IV 01/16/25 23:00 Levetiracetam 500 mg BID PO 01/17/25 22:00 01/23/25 23:43 Lorazepam 1 mg Q5MINP PRN IV 01/17/25 17:15 objective General: the patient is well developed and nourished. No acute distress. No tenderness to palpation in the cervical spine MENTAL STATUS: Subjective SPEECH, LANGUAGE, HIGHER CORTICAL FUNCTION: no aphasia or dysathria. CRANIAL NERVES: Pupils are equal, round and reactive. EOMs full and conjugate. No nystagmus. Facial sensation intact in all three divisions bilaterally. Mandibular strength intact. Facial muscles symmetrical and strength intact. SENSATION: Sensation to touch and pinprick is normal. MOTOR: Normal tone in the upper and lower extremity. Intrinsic hand muscle atrophy. No fasciculations. No abnormal movements or posturing. Muscle strength of the major groups in the arms is 5/5, legs: 4-5/5 REFLEXES: Deep tendon reflexes are symmetrical. No pathological reflexes. CEREBELLAR/COORDINATION: Finger to nose are normal bilaterally. GAIT/STATION: deferred laboratory and microbiology Laboratory Tests 01/19/25 04:54 Test 01/19/25 04:54 Range/Units Serum Glucose 163 H 74-106 mg/dL Problem List Altered mental status with episodic event at home Rule out grand mal seizure disorder Rule out partial complex seizure Chronic stroke with right-sided hemiparesis Bilateral severe carotid stenosis (CTA on 05/13/2022) Right hemiparesis Intermittent left mouth corner twitching, to rule out seizure disorder Episodic event with hiccups, sweating, urinary incontinence, shaking, nonresponsiveness, etiology unclear, needs to rule out seizure Assessment/Plan Monitoring Supportive treatment Telemetry Aspirin 81 mg daily Plavix 75 mg daily Lipitor 40 mg daily Keppra 500 mg b.i.d. For seizure breakthrough Up to chair Physical therapy This medical document was created using an electronic medical record system with [employer] dictation system. Although this document has been carefully reviewed, there may still be some phonetic and typographical errors. These areas are purely typographical due to imperfections of the software programs, and do not reflect any compromise in the patient's medical care. Prognosis poor Dietary Evaluation Review Recommendations by RD: Increase Calorie Intake, Protein Supplementation Comments: 1) Initiate Glucerna tid d/t poor PO appetite. Encourage optimal PO intake. 2) Initiate Pro-Stat @ 30 mL qd. 3) Initiate vitamin C @ 500 mg bid for 7-10 days and zinc sulfate @ 220 mg qd for 7-10 days. 4) Consider staff to assist d/t advanced age and generalized weakness. 5) Collect HbA1c d/t elevated POC glucose - 243 mg/dL 6) Recommend [employer]S ANALYST perform swallow study 7) Continue to monitor I&O, labs, and skin integrity Expected Outcomes/Goals: 1) appetite and labs to improve 2) wound to improve 3) wt to gradually increase 4) f/u in 2-3 days Plan discussed with: Other BASIM ARZATE MD Jan 24, 2025 00:00
[2025-01-24 01:00] VITALS: BP 125/68; PULSE 59; RESP 15; TEMP 98.3; O2SAT 100
[2025-01-24 05:00] VITALS: BP 125/65; PULSE 62; RESP 17; TEMP 98.2; O2SAT 99
[2025-01-24 08:00] VITALS: PULSE 73; RESP 15
[2025-01-24 09:00] VITALS: BP 141/82; PULSE 85; RESP 16; TEMP 97.9; O2SAT 100
[2025-01-24] MEDS ORDERED: KEP500T PO (10:52)
[2025-01-24] MEDS ORDERED: NITR-87 PO (10:59)
--- NOTE | 2025-01-24 10:59 | DVHDS2 ---
Discharge Summary Date of Admission Jan 13, 2025 at 23:17 Date of Discharge: Jan 24, 2025 Labs/Diagnostic Data: Laboratory Results Test 01/24/25 06:39 01/19/25 04:54 01/13/25 22:00 01/13/25 21:04 POC Glucose 106 mg/dl (70-106) White Blood Count 5.6 10^3/uL (4.4-10.8) Red Blood Count 4.19 10^6/uL (4.5-5.90) Hemoglobin 14.4 g/dL (13.5-17.5) Hematocrit 40.6 % (41.0-53.0) Mean Corpuscular Volume 96.9 fL (80.0-100.0) Mean Corpuscular Hemoglobin 34.3 pg (28.0-32.0) Mean Corpuscular Hemoglobin Concent 35.4 g/dL (32.0-36.0) Red Cell Distribution Width 14.4 % (11.8-14.3) Platelet Count 198 10^3/uL (140-450) Mean Platelet Volume 7.7 fL (6.9-10.8) Neutrophils (%) (Auto) 65.6 % (37.0-80.0) Lymphocytes (%) (Auto) 23.7 % (10.0-50.0) Monocytes (%) (Auto) 7.7 % (0.0-12.0) Eosinophils (%) (Auto) 2.3 % (0.0-7.0) Basophils (%) (Auto) 0.7 % (0.0-2.0) Neutrophils # (Auto) 3.7 10 ^3/uL (1.6-8.6) Lymphocytes # (Auto) 1.3 10 ^3/uL (0.4-5.4) Monocytes # (Auto) 0.4 10 ^3/uL (0-1.3) Eosinophils # (Auto) 0.1 10 ^3/uL (0-0.8) Basophils # (Auto) 0 10 ^3/uL (0-0.2) Nucleated Red Blood Cells 0.1 % Sodium Level 137 mmol/L (136-145) Potassium Level 3.7 mmol/L (3.5-5.1) Chloride Level 104 mmol/L (98-107) Carbon Dioxide Level 25 mmol/L (20-31) Anion Gap 8 (5-15) Blood Urea Nitrogen 8 mg/dL (9-23) Creatinine 0.82 mg/dL (0.700-1.30) Glomerular Filtration Rate Calc 88 mL/min (>90) BUN/Creatinine Ratio 9.8 (10.0-20.0) Serum Glucose 163 mg/dL (74-106) Calcium Level 9.0 mg/dL (8.7-10.4) Magnesium Level 1.9 mg/dL (1.6-2.6) Total Bilirubin 0.4 mg/dL (0.2-1.0) Aspartate Amino Transferase (AST) 17 U/L (13-40) Alanine Aminotransferase (ALT) 12 U/L (7-40) Alkaline Phosphatase 47 U/L (46-116) Total Protein 5.6 g/dL (5.7-8.2) Albumin 3.6 g/dL (3.2-4.8) Urine Color Yellow (Yellow) Urine Clarity Turbid (Clear) Urine pH 5.0 (5.0-9.0) Urine Specific Edison 1.013 (1.001-1.035) Urine Protein Trace (Negative) Urine Ketones Trace (Negative) Urine Blood 1+ /uL (Negative) Urine Nitrite Negative (Negative) Urine Bilirubin Negative (Negative) Urine Urobilinogen Normal mg/dL (Negative) Urine Leukocyte Esterase 2+ /uL (Negative) Urine RBC 9 /hpf (0 - 3) Urine WBC Clumps Present /hpf (None Seen) Urine Microscopic WBC 493 /HPF (0-3) Urine Squamous Epithelial Cells None seen /hpf (<5) Urine Bacteria Mod /hpf (None Seen) Urine Mucus Few (None Seen) Urine Glucose Normal mg/dL (Normal) Troponin I High Sensitivity 14 ng/L (</=54) Test 01/13/25 17:24 Lactic Acid Level 1.9 mmol/L (0.4-2.0) B-Type Natriuretic Peptide 34.78 pg/mL (0-100) Other Laboratory Tests 01/19/25 04:54 Brief Hx & Hospital Course: Final diagnoses: Acute metabolic encephalopathy due to UTI UTI w Citrobacter freundii and Enterococcus faecalis 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 Dehydration, resolved Hypertension Coronary artery disease Type 2 diabetes Mixed hyperlipidemia Gout Generalized weakness Vascular dementia Bradycardia due to medications Possible seizure disorder 79-year-old male who was admitted for altered level of consciousness and weakness due to UTI The culture showed Citrobacter and Enterococcus He was given IV antibiotics He is mental status did not improve much, he actually had an episode of decreased consciousness but it was found that he was given Restoril the night before, further evaluation did not show any new strokes, only the old strokes Respiratory was discontinued and he came back to his normal mental status He was also found bradycardic and the beta blockers were discontinued and he did well regarding that Overall the patient remained very weak and altered but calm most of the times with [facility] Neurology evaluated the patient for a history of possible seizures as an outpatient when the described what it looked like seizure that he gets every few weeks and therefore he was started on Keppra Right now the patient is at his baseline however he is not very active and he stayed in bed and mostly sleeps all the time, we evaluated the patient again and had a lengthy discussion with the and she would like to have more help at home and therefore due to his dementia and overall decreased functional status we recommended for her to take him home on hospice and she agreed The patient will be discharged home on hospice today Continue Keppra 500 mg twice a day Continue Macrobid for 5 more days for the UTI Condition at Discharge: Poor Final Diagnosis/Problems List Acute metabolic encephalopathy due to UTI UTI w Citrobacter freundii and Enterococcus faecalis 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 Dehydration, resolved Hypertension Coronary artery disease Type 2 diabetes Mixed hyperlipidemia Gout Generalized weakness Vascular dementia Bradycardia due to medications Possible seizure disorder Discharge Disposition: Hospice - Home SNF Discharge Will this Physician continue t: No Discharge Instruct/Medications Diet: Regular Activity: No Restrictions, As Tolerated Follow Up/Referral: Per hospice Medications: Per hospice Discharge Statement: "Patient was advised to return to the ER or call 911 if any headaches, dizziness, shortness of breath, chest pain, abdominal pain, bleeding, fevers, or worsening of medical condition. Patient was counseled about treatment plan, medications, possible side effects, patientverbalized understanding. All questions were answered to the best of my ability. This discharge took greater then 30 minutes in planning, reviewing documentation, counseling the patient, and discussing with other team members." ASSESSMENT ASSESSMENT Assessment Acute metabolic encephalopathy due to UTI UTI w Citrobacter freundii and Enterococcus faecalis 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 Dehydration, resolved Hypertension Coronary artery disease Type 2 diabetes Mixed hyperlipidemia Gout Generalized weakness Vascular dementia Bradycardia due to medications Possible seizure disorder Date of Service: Jan 24, 2025 Billing Provider: PABLITO GUERRA MD Common Visit Codes: NOT BILLABLE PABLITO GUERRA MD Jan 24, 2025 10:59
[2025-01-24 12:15] VITALS: BP 133/81; PULSE 53; RESP 18; TEMP 36.6; O2SAT 85
[2025-01-24 13:00] VITALS: BP 113/52; PULSE 56; RESP 16; TEMP 98.1; O2SAT 97
== END 2025-01-24 16:30 | disposition home or self-care (01) | DRG 100 ==
LOC: ER 15:33 → OVERFLOW 23:17 → TELE-WESTW 01-14 02:41
PROVIDERS: ADMIT Internal Medicine Geriatric Medicine; ATTEND Internal Medicine Geriatric Medicine
DX: G40.409 Other generalized epilepsy and epileptic syndromes, not intractable, without status epilepticus (principal); G93.41 Metabolic encephalopathy; I69.351 Hemiplegia and hemiparesis following cerebral infarction affecting right dominant side; Z68.1 Body mass index [BMI] 19.9 or less, adult; N30.00 Acute cystitis without hematuria; R62.7 Adult failure to thrive; I10 Essential (primary) hypertension; E86.0 Dehydration; B95.2 Enterococcus as the cause of diseases classified elsewhere; E11.9 Type 2 diabetes mellitus without complications; I25.10 Atherosclerotic heart disease of native coronary artery without angina pectoris; Z66 Do not resuscitate; K21.9 Gastro-esophageal reflux disease without esophagitis; F17.200 Nicotine dependence, unspecified, uncomplicated; M10.9 Gout, unspecified; E78.2 Mixed hyperlipidemia; R00.1 Bradycardia, unspecified; R94.31 Abnormal electrocardiogram [ECG] [EKG]; I65.23 Occlusion and stenosis of bilateral carotid arteries; T44.7X5A Adverse effect of beta-adrenoreceptor antagonists, initial encounter; R06.6 Hiccough; F01.50 Vascular dementia, unspecified severity, without behavioral disturbance, psychotic disturbance, mood disturbance, and anxiety; B96.89 Other specified bacterial agents as the cause of diseases classified elsewhere; N40.0 Benign prostatic hyperplasia without lower urinary tract symptoms; R13.10 Dysphagia, unspecified; Z95.1 Presence of aortocoronary bypass graft; Z79.4 Long term (current) use of insulin; Z79.899 Other long term (current) drug therapy; Z79.1 Long term (current) use of non-steroidal anti-inflammatories (NSAID); Z79.891 Long term (current) use of opiate analgesic; Z79.82 Long term (current) use of aspirin; Y92.89 Other specified places as the place of occurrence of the external cause; Z79.02 Long term (current) use of antithrombotics/antiplatelets
CPT/HCPCS: 36415; 70450; 70551; 71045; 74176; 80053; 81001; 82962; 83605; 83735; 83880; 84484; 85025; 87086; 87088; 87186; 92610; 93005; 93886; 95819; 96360; 97110; 97116; 97163; G0378; J1815; J2405